=== PATIENT | female | born 2000 | race Caucasian/White ===

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

== ENCOUNTER 2021-12-19 15:02 | Emergency (ER) | payer OTHER, SELFPAY ==
--- NOTE | 2021-12-19 | ECG_ITS ---
Test Reason : chest pain Blood Pressure : / mmHG Vent. Rate : 101 BPM Atrial Rate : 101 BPM P-R Int : 130 ms QRS Dur : 072 ms QT Int : 340 ms P-R-T Axes : 055 064 047 degrees QTc Int : 440 ms Sinus tachycardia Otherwise normal ECG No previous ECGs available Referred By: Generic ED Physician Electronically Signed By:NAT LORENZO MD
--- NOTE | ~2021-12-19 | XR_ITS ---
EXAMINATION: XR CHEST CLINICAL INFORMATION: Cough, chest pain. COMPARISON: Chest radiograph on 08/11/2015 TECHNIQUE: 2 views of the chest were obtained. FINDINGS: No significant abnormality is noted involving the heart, lungs, mediastinum, bony thorax or soft tissues. XR/XR chest 2V IMPRESSION: Unremarkable examination.
[2021-12-19 15:13] VITALS: BP 103/65; PULSE 100; RESP 16; TEMP 36.6; O2SAT 99; BMI 22.1
[2021-12-19 15:48] LABS: COVID-19 Test Negative (Negative); IDNOW Serial# 16C4AD1C; Influenza A Negative (Negative); Influenza B2 Negative (Negative)
[2021-12-19 16:06] LABS: Appearance Urine CLEAR; Color Urine YELLOW; Glucose Urine UA NEG (NEG); Leukocyte Esterase Urine NEG (NEG); Nitrite Urine NEG (NEG); UACC Culture Trigger NO; Urine Blood TRACE (NEG); Urine Ketones NEG (NEG); Urine Protein NEG (NEG-TRACE)
[2021-12-19 16:25] LABS: Alanine Aminotransferase 13 U/L (0-31); Albumin Level 4.5 g/dL (3.5-5.0); Alkaline Phosphatase 80 U/L (39-117); Anion Gap 16 (12-20); Aspartate Amino Transferase 34 U/L (5-31); Bilirubin Total 0.3 mg/dL (0.0-1.0); Blood Urea Nitrogen 7 mg/dL (9-16); Calcium 9.1 mg/dL (8.4-10.2); Carbon Dioxide 17 mmol/L (22-29); Chloride 106 mmol/L (96-108); Estimated Glomerular Filt Rate > 60; Glucose Random 100 mg/dL (60-115); Potassium 4.5 mmol/L (3.3-5.1); Sodium 134 mmol/L (135-145); Total Protein 8.8 g/dL (6.5-8.0)
[2021-12-19 16:40] LABS: WBC Urine 0-2 /HPF (0-4)
[2021-12-19 16:41] LABS: Bacteria Urine TRACE /LPF; Squamous Epithelial Cell Urine 2+ /LPF
[2021-12-19 16:45] VITALS: BP 98/65; PULSE 108; RESP 18; TEMP 37.8; O2SAT 100
--- NOTE | 2021-12-19 16:55 | PC.NURSE ---
pt alert and oriented, skin appropriate for ethnicity/ and flushed in the checks/eyes glossy/congested/dry cough/chest tightness/ ls clear through out all colon, sinus tach on the monitor around 111.
[2021-12-19 16:58] LABS: MANUAL DIFF FLAG NO
[2021-12-19 16:59] LABS: Basophils Percent Auto 0.2 % (0-2); Eosinophils Absolute Auto 0.2 X10*3/uL (0.0-0.4); Eosinophils Percent Auto 1.8 % (0-4); Hematocrit 35.5 % (37.0-47.0); Imm Gran Abs Auto 0.03 X10*3/uL (0.00-0.03); Imm Gran Pct Auto 0.3 % (0.0-0.4); Lymphocytes Absolute Auto 0.8 X10*3/uL (1.2-4.9); Lymphocytes Percent Auto 8.6 % (20-40); Mean Corpuscular Hemoglobin 23.9 pg (27.0-33.0); Mean Platelet Volume 9.6 fL (9.4-12.3); Monocytes Percent Auto 10.7 % (2-11); Neutrophils Absolute Auto 7.3 x10*3/uL (2.0-8.3); Neutrophils Percent Auto 78.4 % (45-73); Platelet Count 374 X10*3/uL (160-400); Red Blood Count 4.61 X10*6/uL (4.20-5.50); Red Cell Distribution Width 16.5 % (11.0-16.0); White Blood Count 9.3 X10*3/uL (4.8-10.8)
--- NOTE | 2021-12-19 17:21 | ED_ITS ---
HPI - General Adult General Chief complaint: General Medical Stated complaint: Chest pain Time Seen by Provider: 12/19/21 17:21 History of Present Illness HPI narrative: Positive coughing congestion upper respiratory symptoms having chest pain that is mid chest. It has been ongoing since this morning. no history diabetes, hypertension, mi, family history of NM. No smoking. No recreational drugs. No leg swelling. No history of blood clots. Not on control. Patient from home. No travel long distances. Positive low-grade fever congestion upper respiratory symptoms. Patient received COVID vaccine x2. Also had COVID infection about year and half ago. No diaphoresis. Related Data Previous Rx's Medication Instructions Recorded azithromycin 250 mg tablet See Rx Instructions PO .COMPLEX 12/19/21 upper resp infection #6 tabs Allergies Allergy/AdvReac Type Severity Reaction Status Date / Time No Known Allergies Allergy Verified 11/23/20 19:37 Review of Systems Review of Systems: Positive coughing congestion upper respiratory symptoms positive generalized malaise Yes all other systems are reviewed and are negative ON LICENSE OF [facility] Past Medical History Attestation statement: The following information was validated with the patient. Medical History Go syndrome Social History Social History Alcohol intake: never Patient Tobacco Use Status: Never used Tobacco Smoked in Last 30 Days: No Use of substances other than those prescribed or required for medical reasons: No Advance Directives: No Advance Directives Information Provided: Yes Physical Exam ED Vital Signs: Vital Signs - 24 hr 12/19/21 15:13 12/19/21 16:45 Temperature 98 F 100.1 F Pulse Rate 100 108 H Respiratory Rate 16 18 Blood Pressure 103/65 98/65 Pulse Oximetry 99 100 Oxygen Delivery Method Room Air Room Air BMI result Body Mass Index 22.1 Appearance: Alert. Oriented X3. No acute distress. Eyes: Pupils equal, round and reactive to light. ENT: Pharynx normal. Neck: Normal inspection. Neck supple. No lymph nodes noted. No crepitus CVS: Normal heart rate and rhythm. Pulses normal. Normal S1 and S2 Respiratory: No respiratory distress. Breath sounds normal. No Wheezing. No rales Abdomen: Soft and nontender. No rigidity. No distention. good BS x4 Skin: Skin warm and dry. Normal skin color. Normal skin turgor. Extremities: No lower extremity edema. Neurovascular intact to all extremities. No Lacerations. No Rash Neuro: Oriented X 3. No motor deficit. No sensory deficit. Moving all extermities. No slurred speech Medical Decision Making MDM Narrative Medical decision making narrative: patient's EKG showed a sinus pattern heart rate is 100 DE QRS QT within normal limits is no acute ST segment elevation. History not consistent with ACS. No history to suggest pulmonary emboli. Patient positive URI symptoms. Chest x- ray negative for focal infiltrate. Positive congestion, coughing. Will go ahead and give a Z-Chuck. Have patient follow-up on an outpatient basis. COVID test flu were negative. In stable condition. Lab Data Result diagrams: 12/19/21 15:53 12/19/21 15:53 Labs: Lab Results 12/19/21 12/19/21 12/19/21 Range/Units 15:21 15:21 15:53 WBC 9.3 (4.8-10.8) X10*3/uL RBC 4.61 (4.20-5.50) X10*6/uL Hgb 11.0 L (12.0-16.0) g/dl Hct 35.5 L (37.0-47.0) % MCV 77.0 L (80.0-98.0) fL MCH 23.9 L (27.0-33.0) pg MCHC 31.0 (31.0-35.0) g/dl RDW 16.5 H (11.0-16.0) % Plt Count 374 (160-400) X10*3/uL MPV 9.6 (9.4-12.3) fL Immature Gran % (Auto) 0.3 (0.0-0.4) % Neut % (Auto) 78.4 H (45-73) % Lymph % (Auto) 8.6 L (20-40) % Ida % (Auto) 10.7 (2-11) % Eos % (Auto) 1.8 (0-4) % Baso % (Auto) 0.2 (0-2) % Lymph # (Auto) 0.8 L (1.2-4.9) X10*3/uL Ida # (Auto) 1.0 (0.1-1.2) X10*3/uL Eos # (Auto) 0.2 (0.0-0.4) X10*3/uL Baso # (Auto) 0.0 (0.0-0.2) X10*3/uL Abs Immat Gran (auto) 0.03 (0.00-0.03) X10*3/uL Absolute Neuts (auto) 7.3 (2.0-8.3) x10*3/uL Absolute Nucleated RBC 0.000 (0.0-0.012) X10*3/uL Nucleated RBC % (auto) 0.0 (0.0-0.2) /100WBC Sodium (135-145) mmol/L Potassium (3.3-5.1) mmol/L Chloride (96-108) mmol/L Carbon Dioxide (22-29) mmol/L Anion Gap (12-20) BUN (9-16) mg/dL Creatinine (0.5-1.4) mg/dL Estim Creat Clear Calc Estimated GFR Random Glucose (60-115) mg/dL Calcium (8.4-10.2) mg/dL Total Bilirubin (0.0-1.0) mg/dL AST (5-31) U/L ALT (0-31) U/L Alkaline Phosphatase (39-117) U/L Total Protein (6.5-8.0) g/dL Albumin (3.5-5.0) g/dL Urine Color Urine Appearance Urine pH (5.0-8.0) Ur Specific [place] (1.005-1.025) Urine Protein (NEG-TRACE) MG/DL Urine Glucose (UA) (NEG) MG/DL Urine Ketones (NEG) MG/DL Urine Blood (NEG) Urine Nitrite (NEG) Ur Leukocyte Esterase (NEG) Urine RBC (0) /HPF Urine WBC (0-4) /HPF Ur Squamous Epith Cells /LPF Urine Bacteria /LPF COVID-19 (GÉNESIS) Negative (Negative) COVID-19 Clin Com See Note Influenza Type A (FANY) Negative (Negative) Influenza Type B (FANY) Negative (Negative) Influenza A & B Note See Note 12/19/21 12/19/21 Range/Units 15:53 15:53 WBC (4.8-10.8) X10*3/uL RBC (4.20-5.50) X10*6/uL Hgb (12.0-16.0) g/dl Hct (37.0-47.0) % MCV (80.0-98.0) fL MCH (27.0-33.0) pg MCHC (31.0-35.0) g/dl RDW (11.0-16.0) % Plt Count (160-400) X10*3/uL MPV (9.4-12.3) fL Immature Gran % (Auto) (0.0-0.4) % Neut % (Auto) (45-73) % Lymph % (Auto) (20-40) % Ida % (Auto) (2-11) % Eos % (Auto) (0-4) % Baso % (Auto) (0-2) % Lymph # (Auto) (1.2-4.9) X10*3/uL Ida # (Auto) (0.1-1.2) X10*3/uL Eos # (Auto) (0.0-0.4) X10*3/uL Baso # (Auto) (0.0-0.2) X10*3/uL Abs Immat Gran (auto) (0.00-0.03) X10*3/uL Absolute Neuts (auto) (2.0-8.3) x10*3/uL Absolute Nucleated RBC (0.0-0.012) X10*3/uL Nucleated RBC % (auto) (0.0-0.2) /100WBC Sodium 134 L (135-145) mmol/L Potassium 4.5 (3.3-5.1) mmol/L Chloride 106 (96-108) mmol/L Carbon Dioxide 17 L (22-29) mmol/L Anion Gap 16 (12-20) BUN 7 L (9-16) mg/dL Creatinine 0.78 (0.5-1.4) mg/dL Estim Creat Clear Calc 72.0 Estimated GFR > 60 Random Glucose 100 (60-115) mg/dL Calcium 9.1 (8.4-10.2) mg/dL Total Bilirubin 0.3 (0.0-1.0) mg/dL AST 34 H (5-31) U/L ALT 13 (0-31) U/L Alkaline Phosphatase 80 (39-117) U/L Total Protein 8.8 H (6.5-8.0) g/dL Albumin 4.5 (3.5-5.0) g/dL Urine Color YELLOW Urine Appearance CLEAR Urine pH 7.0 (5.0-8.0) Ur Specific [place] 1.020 (1.005-1.025) Urine Protein NEG (NEG-TRACE) MG/DL Urine Glucose (UA) NEG (NEG) MG/DL Urine Ketones NEG (NEG) MG/DL Urine Blood TRACE (NEG) Urine Nitrite NEG (NEG) Ur Leukocyte Esterase NEG (NEG) Urine RBC 5-9 H (0) /HPF Urine WBC 0-2 (0-4) /HPF Ur Squamous Epith Cells 2+ /LPF Urine Bacteria TRACE /LPF COVID-19 (GÉNESIS) (Negative) COVID-19 Clin Com Influenza Type A (FANY) (Negative) Influenza Type B (FANY) (Negative) Influenza A & B Note Discharge Plan Discharge Clinical Impression: Upper respiratory infection Patient Disposition: Home, Self-Care Instructions: Upper Respiratory Infection (ED) Prescriptions: New azithromycin 250 mg tablet See Rx Instructions .ROUTE .COMPLEX Qty: 6 0RF Rx Instructions: take 500 mg today (day 1), then 250 mg for 4 days (days 2-5) Referrals: Physician,Unknown J [Primary Care Provider] -
[2021-12-19 17:28] VITALS: BP 111/70
[2021-12-19 17:31] LABS: Troponin-I High Sensitivity < 3.5 ng/L (<3.5-17.0)
[2021-12-19] MEDS: Acetaminophen 325 MG TABLET 975 MG PO (17:52)
[2021-12-19 17:55] VITALS: TEMP 38.8
== END 2021-12-19 18:58 | disposition home or self-care (01) ==
PROVIDERS: Emergency Provider Emergency Medicine Emergency Medical Services
DX: J06.9 Acute upper respiratory infection, unspecified (principal); Z20.822 Contact with and (suspected) exposure to COVID-19
CPT/HCPCS: 36415; 71046; 80053; 81001; 84484; 85025; 87502; 87635; 93005; 99283; 99284

== ENCOUNTER → 2022-03-26 10:09 | Outpatient (BNVA) | payer OTHER, SELFPAY | PROVIDERS: Visit Provider Internal Medicine | DX: D50.9 Iron deficiency anemia, unspecified (principal); R10.2 Pelvic and perineal pain; K58.1 Irritable bowel syndrome with constipation | CPT/HCPCS: 99202 ==

== ENCOUNTER 2022-06-12 18:41 | Emergency (ER) | payer OTHER, SELFPAY ==
--- NOTE | ~2022-06-12 | CT_ITS ---
EXAMINATION: CT HEAD WITHOUT CONTRAST CLINICAL INFORMATION: Head injury. Fall. COMPARISON: None TECHNIQUE: Contiguous axial imaging was performed from the skull base to vertex without intravenous administration of contrast. This CT examination was performed using dose optimization techniques as appropriate, variously including the following: *Automated exposure control *Adjustment of mA and/or kV according to patient size (this includes techniques or standardized protocols for targeted exams where dose is matched to indication/reason for exam; i.e. extremities or head) *Use of iterative reconstruction technique DLP: 619 mGy-cm FINDINGS: There is no evidence of an extra-axial collection. There is no evidence of intra-axial or extra-axial hemorrhage. The ventricles and extra-axial CSF spaces are normal.. Goldman-white matter differentiation is normal. No mass, mass effect or infarct is seen. Review of bone windows is normal. No skull fracture. Visualized paranasal sinuses, mastoid air cells and middle ears are clear. CT/CT head/brain wo IV con IMPRESSION: Unremarkable exam.
[2022-06-12 19:07] VITALS: BP 113/59; PULSE 70; RESP 20; TEMP 36.6; O2SAT 100; BMI 21.9
--- NOTE | 2022-06-12 19:08 | ED.HEATRA ---
HPI - Head Injury General Chief complaint: Head Injury Stated complaint: Head Pain Time Seen by Provider: 06/12/22 20:33 Source: patient Mode of arrival: ambulatory Limitations: no limitations History of Present Illness HPI Narrative: 21yoF presenting to the ED with complaints of intermittent headaches, difficulty focusing after she fell and hit her head twice. She reports initially she fell approximately 1-2 months ago and then on Thursday when it was snowing she slipped and fell on ice and hit her head. Did not lose consciousness. Although due to her continued to have the symptoms she came here for further evaluation treatment. She denies being on any blood thinners. She denies any other injuries complaints or concerns at this time. MD Complaint: head injury and fall Onset (ago): day(s) (4) Mechanism of Injury: fall Place: outdoors (Slipped on ice) Location of injury: occipital Severity: mild Quality: aching Radiation: none Other Injuries: none Associated symptoms: nausea and other (Difficulty focusing and headaches) Related Data Previous Rx's Medication Instructions Recorded acetaminophen 500 mg tablet 1,000 mg PO QID PRN fever or pain 06/12/22 (Tylenol Extra Strength) #14 tabs ondansetron HCl 4 mg tablet 4 mg PO Q8H #14 tabs 06/12/22 Allergies Allergy/AdvReac Type Severity Reaction Status Date / Time No Known Allergies Allergy Verified 03/26/22 10:15 Review of Systems Review of Systems: Constitutional : No changes in activity, No lethargy, + recent prior head injury and fall, No agitation, No increased fussiness ENT/Mouth : No Ear Pain, No Nasal discharge/drainage Eyes: No Eye Pain, No Swelling, No Redness, No Foreign Body, No Vision Changes Cardiovascular : No Chest Pain, No SOB Respiratory : No Cough Gastrointestinal : No Nausea, No Vomiting, No abdominal Pain Genitourinary : No Dysuria, No Urinary Frequency, No Urinary Incontinence, No Urgency, No Flank Pain Musculoskeletal : No joint pain, No neck stiffness, No back pain/injury Skin : No lacerations Neuro : No unsteady gait, No Paresthesias, No Loss of Consciousness, No altered mental status, No dizziness, + Headache Denies past medical history of HIV, recent trauma, coagulopathy, recent spinal/ epidural procedure, new medication, URI symptoms, close contacts with similar symptoms, tick bite, or known CO2 exposure. Yes all other systems are reviewed and are negative [facility]LY [facility] Past Medical History Attestation statement: The following information was validated with the patient. Source: old records reviewed and nursing notes reviewed Medical History Go syndrome Surgical History Hx of adenoidectomy Hx of external ear surgery Social History Social History Alcohol intake: never Patient Tobacco Use Status: Never used Tobacco Physical Exam Vital Signs: Vital Signs: Last Vital Signs Temp 97.8 F 06/12/22 19:07 Pulse 70 06/12/22 19:07 Resp 20 06/12/22 19:07 BP 113/59 L 06/12/22 19:07 Pulse Ox 100 06/12/22 19:07 O2 Del Method 06/12/22 19:07 BMI result Body Mass Index 21.9 vital signs have been reviewed as normal and appeared to be correct. Blood pressure normal. Heart rate normal. Respiration rate normal. Temperature normal. Oxygen saturation normal. Appearance: Alert. Oriented X3. No acute distress. Head: Normal external exam. Normocephalic. Atraumatic. No Jean signs noted. No raccoon eyes noted Eyes: PERRLA. EOMI. Conjunctiva and sclera normal. Eyelids normal. ENT: EAC normal. TM's Normal. No septal hematoma noted. No hemotympanum noted. Pharynx normal. Uvula midline. Moist mucous membranes. No lesions/ulcerations or masses noted on the tongue. Normal voice. No trismus noted. No drooling noted. No muffled voice noted. Neck: Normal inspection. Neck supple. FROM. No adenopathy. Thyroid Normal. No tracheal deviation noted. No crepitus is noted. No meningeal signs. No neck mass noted. No signs of trauma noted. CVS: Normal heart rate and rhythm. Heart sound normal. Pulses normal throughout. No murmurs/rales/gallops. Respiratory: No respiratory distress. Painless inspiration. Breath sounds normal. No wheezes/rales/rhonchi noted. Chest nontender. No crepitus is noted. No accessory muscle usage noted or decreased air movement noted. No signs of trauma. Abdomen: Soft and nontender. Nondistended. No guarding. No rigidity. Bowel sounds normal in all 4 quadrants. No distention noted. No organomegaly noted. No visible injury noted. No rebound tenderness. Negative Rovsing sign. Negative obturator's sign. Negative psoas sign. Negative Elaine sign. Back: No CVA tenderness. Full range of motion noted. Nontender. No signs of trauma. Patient neuro intact bilaterally and distally on all 4 extremities. Patient's reflexes intact bilaterally and distally on all 4 extremities. No rashes/lesion/induration/fluctuance or signs of infection noted. Skin: Skin warm and dry. Normal skin color. Normal skin turgor. No rashes/lesions/lacerations noted. Extremities: No lower extremity edema. No calf tenderness is noted. Extremities exhibit normal range of motion and nontender. Neuro: Oriented X 3. No motor deficit. No sensory deficit. Reflexes normal. Normal steady gait. No focal neuro deficits noted. CN's II-XII intact bilaterally? Vascular: + radial pulses/+ 2 distal pedal pulses/+2 dorsalis pedis b/l. Normal cap refill. No cyanosis noted to upper extremity nails and lower extremity toes nails. Course Course Course Narrative: ADRY- 19:10PM - 21yoF presenting to the ED with complaints of intermittent headaches, difficulty focusing after she fell and hit her head twice. She reports initially she fell approximately 1-2 months ago and then on Thursday when it was snowing she slipped and fell on ice and hit her head. Did not lose consciousness. Although due to her continued to have the symptoms she came here for further evaluation treatment. She denies being on any blood thinners. She denies any other injuries complaints or concerns at this time. Plan: CT scan of brain without contrast. Patient will be sent back to the waiting room to be evaluated and emergency minor care. Reevaluation(s) Reevaluation #1: CT scan of brain without contrast within normal limits. Patient with normal neuro exam patient most likely concussion. Will DC home with symptomatic treatment instructions return if any new or worsening symptoms follow up with primary care provider. Patient understands agrees with this plan. Time: 20:37 Medical Decision Making Independent Interpretation Interpretation: CT scan of brain without contrast FINDINGS: There is no evidence of an extra-axial collection. There is no evidence of intra-axial or extra-axial hemorrhage. The ventricles and extra-axial CSF spaces are normal.. Goldman-white matter differentiation is normal. No mass, mass effect or infarct is seen. Review of bone windows is normal. No skull fracture. Visualized paranasal sinuses, mastoid air cells and middle ears are clear. ? CT/CT head/brain wo IV con IMPRESSION: Unremarkable exam. Discharge Plan Discharge Clinical Impression: Closed head injury, Concussion without loss of consciousness Patient Disposition: Home, Self-Care Instructions: Concussion (ED), Head Injury (ED) Prescriptions: New acetaminophen [Tylenol Extra Strength] 500 mg tablet 1,000 mg PO QID PRN (Reason: fever or pain) Qty: 14 0RF ondansetron HCl 4 mg tablet 4 mg PO Q8H Qty: 14 0RF Referrals: Physician,Unknown J [Primary Care Provider] - (Follow-up with her PCP this week) Stand Alone Forms: Work/School Release Print Language: Romanian
== END 2022-06-12 20:44 | disposition home or self-care (01) ==
LOC: HO.ED 20:43
PROVIDERS: Emergency Provider Internal Medicine
DX: R51.9 Headache, unspecified (principal); R06.02 Shortness of breath; Z79.899 Other long term (current) drug therapy
CPT/HCPCS: 70450; 99282; 99284

== ENCOUNTER 2022-07-08 14:42 | Outpatient (REF) | payer OTHER, SELFPAY | END 2022-07-08 14:43 | disposition home or self-care (01) | LOC: HO.LNP 14:42 | PROVIDERS: Visit Provider Obstetrics & Gynecology | DX: O26.891 Other specified pregnancy related conditions, first trimester (principal); R10.9 Unspecified abdominal pain | CPT/HCPCS: 81025; 99212 ==

== ENCOUNTER 2022-07-08 15:46 | Outpatient (REF) | payer OTHER, SELFPAY ==
--- NOTE | ~2022-07-08 | US_ITS ---
EXAMINATION: US OBSTETRICAL ULTRASOUND CLINICAL INFORMATION: Pelvic pain affecting COMPARISON: None. LMP: 06/08/2022. Gestational age by maternal dates is 4 weeks 2 days. Estimated date of delivery by maternal dates is 03/15/2023. TECHNIQUE: Transabdominal and endovaginal imaging was performed. FINDINGS: The uterus appears normal. Endometrial thickness is 1.2 cm. No gestational sac is seen. No fluid is seen in the endometrial canal. The right ovary measures 3.2 x 2.7 x 2.7 cm which includes a corpus luteum cyst measuring 1.9 x 1.7 x 1.7 cm. The left ovary measures 2.8 x 1.6 x 2.1 cm. There is no significant adnexal mass. No pelvic ascites. US/US OB pelvic and transvaginal IMPRESSION: No intrauterine is identified at this time. Correlation with beta hCG levels is recommended, as nonvisualization of a gestational sac could be due to an early stage of . Alternatively, lack of an intrauterine gestational sac may also be seen with missed or ectopic , although no adnexal mass is seen to strongly suggest ectopic . Short-term sonographic follow-up and serial beta hCG levels are recommended to assess for development of an intrauterine gestational sac.
[2022-07-08 18:15] LABS: CT PCR NOT DETECTED (Not Detect.); NG PCR NOT DETECTED (Not Detect.)
[2022-07-09 10:02] LABS: BV Int Neg Control Negative (Negative); BV Int Pos Control Positive (Positive)
== END 2022-07-08 15:47 | disposition home or self-care (01) ==
LOC: HO.US 15:46
PROVIDERS: Visit Provider Obstetrics & Gynecology
DX: O26.891 Other specified pregnancy related conditions, first trimester (principal); R10.2 Pelvic and perineal pain; Z3A.01 Less than 8 weeks gestation of pregnancy
CPT/HCPCS: 0353U; 76801; 76817; 87480; 87510; 87660

== ENCOUNTER 2022-07-09 12:49 | Outpatient (REF) | payer OTHER, SELFPAY ==
[2022-07-09 14:24] LABS: Hematocrit 31.4 % (37.0-47.0); Hemoglobin 9.7 g/dl (12.0-16.0); Mean Corpuscular HGB Conc 30.9 g/dl (31.0-35.0); Mean Corpuscular Hemoglobin 23.8 pg (27.0-33.0); Mean Corpuscular Volume 77.1 fL (80.0-98.0); Mean Platelet Volume 9.4 fL (9.4-12.3); Platelet Count 472 X10*3/uL (160-400); Red Blood Count 4.07 X10*6/uL (4.20-5.50); Red Cell Distribution Width 15.8 % (11.0-16.0); White Blood Count 6.6 X10*3/uL (4.8-10.8)
[2022-07-09 15:03] LABS: Alanine Aminotransferase 12 U/L (0-31); Aspartate Amino Transferase 18 U/L (5-31); Estimated Glomerular Filt Rate > 60
[2022-07-09 15:06] LABS: HCG Quantitative 580 mIU/mL
== END 2022-07-09 12:50 | disposition home or self-care (01) ==
LOC: HO.LAB 12:49
PROVIDERS: Visit Provider Obstetrics & Gynecology
DX: O26.891 Other specified pregnancy related conditions, first trimester (principal); R10.2 Pelvic and perineal pain
CPT/HCPCS: 36415; 82565; 84450; 84460; 84702; 85027; 99212

== ENCOUNTER 2022-07-11 06:21 | Outpatient (REF) | payer OTHER, SELFPAY ==
[2022-07-11 08:50] LABS: HCG Quantitative 1127 mIU/mL
== END 2022-07-11 06:22 | disposition home or self-care (01) ==
LOC: HO.LAB 06:21
PROVIDERS: Visit Provider Obstetrics & Gynecology
DX: Z34.90 Encounter for supervision of normal pregnancy, unspecified, unspecified trimester (principal)
CPT/HCPCS: 36415; 84702

== ENCOUNTER 2022-07-13 08:52 | Outpatient (REF) | payer OTHER, SELFPAY ==
[2022-07-13 11:18] LABS: HCG Quantitative 2660 mIU/mL
== END 2022-07-13 08:53 | disposition home or self-care (01) ==
LOC: HO.LAB 08:52
PROVIDERS: Visit Provider Obstetrics & Gynecology
DX: Z34.90 Encounter for supervision of normal pregnancy, unspecified, unspecified trimester (principal)
CPT/HCPCS: 36415; 84702

== ENCOUNTER 2022-07-15 07:49 | Outpatient (REF) | payer OTHER, SELFPAY ==
--- NOTE | ~2022-07-15 | US_ITS ---
EXAMINATION: US FIRST TRIMESTER CLINICAL INFORMATION: LMP: 06/08/2022 Beta-hC on 07/15/2022. COMPARISON: Prior ultrasound on 07/08/2022. TECHNIQUE: Transabdominal imaging was performed. FINDINGS: UTERUS AND INTRAUTERINE GESTATIONAL SAC: There is a single intrauterine gestational sac. 0.6 cm suggesting of 5 weeks and 1 day. CROWN-RUMP LENGTH (CRL): pole not visualized.. YOLK SAC: Not found HEART MOTION: Not visible yet. SUBCHORIONIC HEMORRHAGE: None OVARIES: No adnexal mass seen. Right: Corpus luteal cyst 2.4 x 1.5 x 2 cm. Left: Normal FREE FLUID: None OTHER FINDINGS: None US/US OB pelvic and transvaginal IMPRESSION: 1. Single intrauterine gestational sac 0.6 cm suggesting of 5 weeks 1 day. pole or heart rate is not detected could be early in the . Attention to follow-up serial imaging recommended. 2. Cystic structure in the right ovary likely corpus luteal cyst 2.4 cm.
[2022-07-15 09:22] LABS: HCG Quantitative 5520 mIU/mL
== END 2022-07-15 07:50 | disposition home or self-care (01) ==
LOC: HO.US 07:49
PROVIDERS: Visit Provider Obstetrics & Gynecology
DX: Z34.91 Encounter for supervision of normal pregnancy, unspecified, first trimester (principal); Z3A.01 Less than 8 weeks gestation of pregnancy
CPT/HCPCS: 36415; 76801; 76817; 84702; 99212

== ENCOUNTER 2022-07-22 08:56 | Emergency (ER) | payer OTHER, SELFPAY ==
[2022-07-22 09:01] VITALS: BP 106/44; PULSE 96; RESP 18; TEMP 36.5; O2SAT 99; BMI 20.1
[2022-07-22 09:17] VITALS: BP 106/44; PULSE 96; RESP 18; TEMP 36.5; O2SAT 99
--- NOTE | 2022-07-22 10:21 | ED.URI ---
HPI - URI/Sore Throat General Chief Complaint: Ear Problems Stated Complaint: R ear pain/Chest soreness w movement Time Seen by Provider: 07/22/22 09:19 Source: patient and family ( ) Mode of arrival: ambulatory Limitations: no limitations History of Present Illness HPI Narrative: 22-year-old female who is currently 6 weeks presenting to the ER with complaints of URI complaints that started yesterday which include chills, fatigue, malaise, nasal congestion / rhinorrhea, sinus pressure pain, sore throat, sneezing and right ear pain along with a dry cough. She is also concerned for an enlarged lymph own on the right side of her neck that has been present for approximately 1-2 months. Reports that she is able to follow back up with her doctor regarding this. She denies any fevers, dizziness, headaches, neck pain/stiffness, chest pain or shortness of breath, dyspnea on exertion, orthopnea, palpitations, paresthesias, sputum production, nausea /vomiting / diarrhea constipation, black or bloody stools, dysuria, hematuria, abnormal vaginal discharge, black or bloody stools, vaginal bleeding, flank pain, back pain, recent travel or sick contacts, rashes, others with similar symptoms or any other symptoms complaints or concerns at this time. MD elicited complaint: cough, sore throat, rhinorrhea, nasal congestion and sinus pain Pertinent past history: other ( Currently 6 weeks ) Onset (ago): day(s) (2) Consistency: constant Severity: mild Description of mucous: clear, watery and yellow Able to tolerate fluids by mouth: Yes Exacerbating factors: swallowing Relieving factors: nothing Associated symptoms: chills, myalgias, rhinorrhea, nasal congestion, sore throat, cough and ear pain Treatments prior to arrival: none Related Data Previous Rx's Medication Instructions Recorded acetaminophen 500 mg tablet 500 mg PO Q6H PRN pain #14 tabs 07/22/22 (Tylenol Extra Strength) Allergies Allergy/AdvReac Type Severity Reaction Status Date / Time No Known Allergies Allergy Verified 07/15/22 10:25 Review of Systems Review of Systems: Constitutional : + chills/fatigue/malaise, No Weight loss, No Fever, No Night Sweats ENT/Mouth : + sore throat/nasal congestion/ rhinorrhea/sinus pressure pain, + right ear pain, No Hearing loss, No Sinus Pain, No Hoarseness, No Swallowing Difficulty Eyes: No Eye Pain, No Swelling, No Redness, No Foreign Body, No Discharge, No Vision Changes Cardiovascular : No Chest Pain, No SOB, No Dyspnea on Exertion, No Orthopnea, No Edema, No Palpitations Respiratory : + Cough, No Sputum, No Wheezing, No Smoke Exposure, No Dyspnea Gastrointestinal : No Nausea, No Vomiting, No Diarrhea, No Constipation, No abdominal Pain, No Hematochezia, No Melena Genitourinary : no irregular bleeding, No Dysuria, No Urinary Frequency, No Hematuria, No Urinary Incontinence, No Urgency, No Flank Pain, No Urinary Flow Changes, No Hesitancy Musculoskeletal : No joint pain, No Myalgias, No Joint Swelling Skin : No Skin Lesions, No rash Neuro : No Weakness, No Numbness, No Paresthesias, No Loss of Consciousness, No Dizziness, No Headache Psych : No Anxiety/Panic, No Depression, No SI/HI/AH/VH, No Social Issues, Heme/Lymph: No Bruising, No Bleeding,No Lymphadenopathy Endocrine : No Polyuria, No Polydipsia, No Temperature Intolerance Yes all other systems are reviewed and are negative [facility] Past Medical History Attestation statement: The following information was validated with the patient. Source: old records reviewed, obtained from family and nursing notes reviewed Medical History Go syndrome Surgical History Hx of adenoidectomy Hx of external ear surgery Social History Social History Alcohol intake: never Patient Tobacco Use Status: Never used Tobacco Smoked in Last 30 Days: No Use of substances other than those prescribed or required for medical reasons: No Advance Directives: No Advance Directives Information Provided: No Patient : Yes Physical Exam Vital Signs: Vital Signs: Last Vital Signs Temp 97.7 F 07/22/22 09:17 Pulse 96 07/22/22 09:17 Resp 18 07/22/22 09:17 BP 106/44 L 07/22/22 09:17 Pulse Ox 99 07/22/22 09:17 O2 Del Method 07/22/22 09:17 BMI result Body Mass Index 20.1 Vital signs reviewed. Blood pressure normal. Pulse normal. Respiration normal. Oxygen normal. Temperature normal. Appearance: Alert. Oriented X3. No acute distress. Head: Normal external exam. Normocephalic. Atraumatic. Eyes: PERRLA. EOMI. Conjunctiva and sclera normal. Eyelids normal. ENT: EAC normal. TM's Normal. Pharynx normal. Uvula midline. Moist mucous membranes. No lesions/ulcerations or masses noted on the tongue. Normal voice. No trismus noted. No drooling noted. No muffled voice noted. Neck: Normal inspection. Neck supple. FROM. + right posterior cervical chain pt noted to have one enlarged Lymph node nontender. No additional adenopathy. Thyroid Normal. No meningeal signs. CVS: Normal heart rate and rhythm. Heart sound normal. Pulses normal throughout. No murmurs/rales/gallops. Respiratory: No respiratory distress. Painless inspiration. Breath sounds normal. No wheezes/rales/rhonchi noted. Chest nontender. No accessory muscle usage noted or decreased air movement noted. Abdomen: Soft and nontender. no organomegaly. No rebound tenderness is noted. Back: Full range of motion noted. Nontender. No CVA tenderness is noted. Skin: Skin warm and dry. Normal skin color. Normal skin turgor. No rashes/lesions/lacerations noted. Extremities: Extremities exhibit normal range of motion and nontender. Neuro: Oriented X 3. No motor deficit. No sensory deficit. Reflexes normal. Normal steady gait. No focal neuro deficits noted. CN's II-XII intact bilaterally? Vascular: + radial pulses. Normal cap refill. No cyanosis noted to upper extremity nails Course Course Course Narrative: Ass: Viral syndrome.? Pt looks well, not dehydrated.? Breathing easily.? afebrile. Vital signs are stable within normal limits. Normal oxygen level. Lungs CTA. CV RRR. Neck is soft nontender supple with full range of motion no meningeal signs are noted. Posterior pharynx no erythema or exudate noted. Uvula midline. No trismus /drooling/ stridor. Patient tolerating secretions well. Moist mucous membranes are noted. Will obtain COVID/RSV/ flu and rapid strep otherwise no additional Labs/ iv fluids not indicated. Imaging not indicated. Not c/w pneumonia, otitis media, otitis externa, mastoiditis, peritonsillar abscess, pharyngeal abscess, dental abscess, gingival abscess. Not consistent with UTI / ptx/ pericarditis / mediastinitis / meningitis.? if swabs are negative patient will be discharged with viral syndrome and symptomatic treatment instructions return if any new or worsening symptoms follow up with her primary care provider for further evaluation treatment. Patient understands agrees with this plan. Medical Decision Making Lab Data MDM Lab Attestation statement: I reviewed the patient's lab results. Labs: Lab Results 07/22/22 07/22/22 Range/Units 10:01 10:01 Influenza Type A (PCR) NEGATIVE (Negative) Influenza Type B (PCR) NEGATIVE (Negative) RSV RNA Qual (PCR) NEGATIVE (Negative) SARS-CoV-2 RNA (RT-PCR) NEGATIVE (Negative) S. pyogenes GrpA FANY Negative (Negative) Independent Historian Clinical information obtained from an independent historian. History obtained from or confirmed by: Spouse Discharge Plan Discharge Clinical Impression: Acute viral syndrome, Enlarged lymph node in neck Patient Disposition: Home, Self-Care Instructions: Lymphadenopathy (ED), Viral Syndrome (ED) Prescriptions: New acetaminophen [Tylenol Extra Strength] 500 mg tablet 500 mg PO Q6H PRN (Reason: pain) Qty: 14 0RF Referrals: Physician,None [Primary Care Provider] - ( your PCP as needed) Stand Alone Forms: Work/School Release
[2022-07-22 10:28] LABS: IDNOW Serial# 6674DD1D; Strep A Nucleic Acid Negative (Negative)
[2022-07-22 10:58] LABS: Influenza A PCR NEGATIVE (Negative); Influenza B PCR NEGATIVE (Negative); Resp Syncy Virus RNA Qual PCR NEGATIVE (Negative); SARS COV2 PCR INHOUSE NEGATIVE (Negative)
== END 2022-07-22 11:20 | disposition home or self-care (01) ==
PROVIDERS: Physician Assistant Medical; Emergency Provider Emergency Medicine
DX: O26.91 Pregnancy related conditions, unspecified, first trimester (principal); Z3A.01 Less than 8 weeks gestation of pregnancy; B34.9 Viral infection, unspecified; R05.9 Cough, unspecified; M79.10 Myalgia, unspecified site; Z20.822 Contact with and (suspected) exposure to COVID-19; Z20.828 Contact with and (suspected) exposure to other viral communicable diseases
CPT/HCPCS: 0241U; 87651; 99283; 99284

== ENCOUNTER 2022-07-30 15:20 | Outpatient (REF) | payer OTHER, SELFPAY ==
--- NOTE | ~2022-07-30 | US_ITS ---
EXAMINATION: US OBSTETRICAL ULTRASOUND CLINICAL INFORMATION: Check viability. COMPARISON: Ultrasound OB pelvis and transvaginal. LMP: 06/08/2022. Gestational age by maternal dates is 7 weeks 3 days. Estimated date of delivery by maternal dates is 03/15/2023. TECHNIQUE: Transabdominal imaging of pelvis was performed. FINDINGS: There is a single intrauterine gestational sac with visible yolk sac, embryo/fetus, and cardiac activity. There is no significant subchorionic hemorrhage or hematoma. HR: 158 beats per minute. CRL (crown rump length): 0.98 cm (7 weeks 1 day +/- 4 days). NAVEEN (estimated date of delivery): 03/17/2023 +/- 4 days. MATERNAL ADNEXA: The right maternal ovary measures 3.73 x 2.12 x 2.96 cm. No focal lesion is seen. The left maternal ovary measures 2.16 x 1.78 x 1.55 cm. No focal lesion seen. There is no significant maternal adnexal mass. No maternal pelvic ascites. US/US OB <= 14 weeks fetus IMPRESSION: 1. Single intrauterine gestation with ultrasound gestational age of 7 weeks and 1 day +/- 4 days. 2. Estimated date of delivery is 03/17/2023 +/- 4 days. 3. No maternal adnexal mass or pelvic ascites.
== END 2022-07-30 15:21 | disposition home or self-care (01) ==
LOC: HO.HMGCX 15:20
PROVIDERS: Visit Provider Obstetrics & Gynecology
DX: Z34.91 Encounter for supervision of normal pregnancy, unspecified, first trimester (principal); Z3A.01 Less than 8 weeks gestation of pregnancy
CPT/HCPCS: 76801

== ENCOUNTER 2022-08-05 10:07 | Outpatient (REF) | payer OTHER, SELFPAY | END 2022-08-05 10:08 | disposition home or self-care (01) | LOC: HO.LAB 10:07 | PROVIDERS: Visit Provider Obstetrics & Gynecology | DX: O26.851 Spotting complicating pregnancy, first trimester (principal); Z3A.01 Less than 8 weeks gestation of pregnancy | CPT/HCPCS: 86850; 86900; 99212 ==

== ENCOUNTER 2022-08-11 15:07 | Outpatient (REF) | payer OTHER, SELFPAY | END 2022-08-11 15:08 | disposition home or self-care (01) | LOC: HO.LAB 15:07 | PROVIDERS: Visit Provider Advanced Practice Midwife | DX: Z34.91 Encounter for supervision of normal pregnancy, unspecified, first trimester (principal); R35.0 Frequency of micturition; R30.0 Dysuria | CPT/HCPCS: 87086; 99212 ==

== ENCOUNTER 2023-08-31 17:38 | Emergency (ER) | payer OTHER, SELFPAY ==
[2023-08-31 18:21] VITALS: BP 99/72; PULSE 85; RESP 16; TEMP 36.1; O2SAT 100; BMI 23.4
--- NOTE | 2023-08-31 18:21 | ED_ITS ---
HPI - Headache General Chief Complaint: Headache Stated Complaint: headache Time Seen by Provider: 08/31/23 20:27 Source: patient Mode of arrival: ambulatory Limitations: no limitations History of Present Illness HPI Narrative: Patient is a 23-year-old female who presents to the emergency department for evaluation of a headache. Reports it is primarily right-sided behind the eye and wraps around the side of the head. She does get some symptom relief with Tylenol and ibuprofen but only for a couple of hours before it returns. 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 Denies any red flag symptoms including fevers, chills, neck stiffness, malaise, aphasia, weakness, poor coordination, descriptors such as ?the worst headache ever ?or ?thunderclap?, or painful temporal region. Denies dizziness, lightheadedness, vision changes, URI symptoms, chest pain, shortness of breath, numbness or tingling of the extremities. Related Data Home Medications Medication Instructions Recorded Confirmed prenat.vits,peter,thn-qhvd-qmwgo 1 tab PO DAILY 08/11/22 Previous Rx's Medication Instructions Recorded hipwshtubh-gpqbjuajjtham-gchhxmfm 1 cap PO Q8H PRN pain #14 caps 08/31/23 50 mg-300 mg-40 mg capsule (Fioricet) Allergies Allergy/AdvReac Type Severity Reaction Status Date / Time No Known Allergies Allergy Verified 08/31/23 18:21 Review of Systems Review of Systems: Yes all other systems are reviewed and are negative PMFSH Past Medical History Attestation statement: The following information was validated with the patient. Source: old records reviewed Medical History Go syndrome Surgical History Hx of external ear surgery Hx of adenoidectomy Social History Social History Alcohol intake: never Patient Tobacco Use Status: Never used Tobacco Advance Directives: No Advance Directives Information Provided: No Physical Exam Vital Signs: Vital Signs: Last Vital Signs Temp 98.0 F 08/31/23 20:20 Pulse 81 03/04/24 20:20 Resp 17 08/31/23 20:20 BP 112/72 08/31/23 20:20 Pulse Ox 100 08/31/23 20:20 O2 Del Method Room Air 08/31/23 20:20 BMI result Body Mass Index 23.4 Appearance: Alert.?Oriented to person, place and time. No acute distress.?Normal affect. Head: Normocephalic, atraumatic Eyes: Pupils equal, round and reactive to light. EOMI. No nystagmus. No tenderness to palpation over the temporal region. ENT: External auditory canal normal tympanic membrane pearly askew and intact bilaterally. Oropharynx normal. Neck: Normal inspection.? Neck supple. CVS: Heart sounds normal. Normal heart rate and rhythm.? Pulses normal.?? Respiratory: No respiratory distress.? Lung sounds clear to auscultation bilaterally?? Abdomen: Soft and non-tender. Normoactive bowel sounds. ?? Skin: Skin warm and dry.? Normal skin color.? ?? Extremities: No lower extremity edema.? Neuro: Moves all extremities spontaneously. Sensation intact bilaterally. CN II- XII intact. No focal neuro deficits. Ambulatory with steady gait. Course Course Course Narrative: RME- 18:22PM 23yoF presenting to the ER with complaints of a headache to the right side of her head/right orbit for the past 5 days. She reports she has had headaches in the past although this once has lasted a little longer. She reports she is taking Tylenol although it takes the pain away mildly and then it comes back. She reports it as a throbbing sensation. 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 She denies any fevers, nasal congestion/rhinorrhea, cough, sore throat, trouble swallowing or breathing, rashes neck stiffness, paresthesias, weakness, recent falls or trauma, tick bites or any other symptoms complaints or concerns at this time. Plan: Patient can be sent to [facility] [place] COVID/RSV/flu swab, UA and urine ordered at this time. Medications Administered Discontinued Medications Generic Name Dose Route Start Last Admin Trade Name Freq PRN Reason Stop Dose Admin Acetaminophen/Butalbital/Caffeine 1 tab 08/31/23 20:45 08/31/23 21:29 Butalb/Acetamin/Caff 50/325/40 Tablet PO 08/31/23 20:46 1 tab ONCE ONE Administration Medical Decision Making Medical Decision Making [facility] Narrative: Patient is a 23-year-old female who presents emergency department for evaluation of an intermittent right-sided headache for 5 days as per HPI. Has no focal neurological deficits upon examination. No associated viral type symptoms. Does not wear corrective lenses nor has she had any recent eye examination, but headache is notably worse after straining/prolonged use of computer/phone screen. Differential diagnosis with presentation includes SDH, SAH, ICH, MAGNETIC HEALER mass, meningitis, encephalitis, CVA, GCA, migraine, headache. History without concerning exposures, not exacerbated or worsened by exertion, no red flag symptoms, vision changes, under the age of 50, no new no compromising conditions, no focal neurological abnormalities. No indication for emergent head CT. Viral testing is negative. HCG negative. Trialed treatment with Fioricet with improvement in headache. Will send short prescription to pharmacy advised outpatient follow-up with her primary care provider. All questions answered. Stable for discharge. Differential Diagnosis Differential Diagnoses: The differential diagnosis associated with the presentation includes (SDH, SAH, ICH, MAGNETIC HEALER mass, meningitis, encephalitis, CVA, GCA, migraine, headache) Admission/Observation Consideration of admission/observation: Escalation of care including admission/observation considered (See narrative above) Lab Data [facility] Lab Attestation statement: I reviewed the patient's lab results. (Viral testing negative.) Labs: Lab Results 08/31/23 08/31/23 Range/Units 18:28 20:46 Urine Color Yellow Urine Appearance Clear Urine pH 6.5 (5.0-9.0) Ur Specific [place] 1.015 (1.005-1.025) Urine Protein Negative (Neg-Trace) mg/dL Urine Glucose (UA) Negative (Negative) mg/dL Urine Ketones Negative (Negative) mg/dL Urine Blood Negative (Negative) Urine Nitrite Negative (Negative) Ur Leukocyte Esterase Negative (Negative) Urine Test NEGATIVE (NEGATIVE) Influenza Type A (PCR) NEGATIVE (Negative) Influenza Type B (PCR) NEGATIVE (Negative) RSV RNA Qual (PCR) NEGATIVE (Negative) SARS-CoV-2 RNA (RT-PCR) NEGATIVE (Negative) Independent Historian Clinical information obtained from an independent historian. History obtained from or confirmed by: Spouse (Present who confirms history) External Record Review External record reviewed: Outpatient record and Other ([employer]) Prescription Management I considered prescription management with: Pain Medication Discharge Plan Discharge Clinical Impression: Headache Patient Disposition: Home, Self-Care Instructions: Acute Headache (ED) Prescriptions: New hntnhiztyv-razqiczswwjbr-gbui [Fioricet] 50-300-40 mg capsule 1 cap PO Q8H PRN (Reason: pain) Qty: 14 0RF No Action prenat.vits,peter,jfh-ifyp-eqzlt Tablet 1 tab PO DAILY
[2023-08-31 19:14] LABS: Influenza A PCR NEGATIVE (Negative); Influenza B PCR NEGATIVE (Negative); Resp Syncy Virus RNA Qual PCR NEGATIVE (Negative); SARS COV2 PCR INHOUSE NEGATIVE (Negative)
[2023-08-31 20:11] VITALS: BP 116/62; PULSE 62; RESP 16; TEMP 37.6; O2SAT 100
[2023-08-31 20:20] VITALS: BP 112/72; PULSE 81; RESP 17; TEMP 36.7; O2SAT 100
[2023-08-31 20:54] LABS: Appearance Urine Clear; Color Urine Yellow; Glucose Urine UA Negative (Negative); Leukocyte Esterase Urine Negative (Negative); Nitrite Urine Negative (Negative); PH 6.5 (5.0-9.0); Specific Gravity - Urine 1.015 (1.005-1.025); Urine Blood Negative (Negative); Urine Ketones Negative (Negative); Urine Protein Negative (Neg-Trace)
[2023-08-31 20:55] LABS: UPreg QC Valid YES; Urine Pregnancy NEGATIVE (NEGATIVE)
[2023-08-31] MEDS: Butalb/Acetamin/Caff 50/325/40 TABLET 1 TAB PO (21:29)
--- NOTE | 2023-08-31 22:30 | PC.NURSE ---
this nurse attempted to D/C patient, pt has concerns that she may need a head CT with her headache, [employer] Levar notified via [employer] connect
== END 2023-08-31 22:47 | disposition home or self-care (01) ==
PROVIDERS: Physician Assistant Medical; Emergency Provider Emergency Medicine Emergency Medical Services
DX: R51.9 Headache, unspecified (principal); Z11.52 Encounter for screening for COVID-19; Z20.828 Contact with and (suspected) exposure to other viral communicable diseases
CPT/HCPCS: 0241U; 81003; 81025; 99283; 99284

== ENCOUNTER 2024-01-04 11:34 | Emergency (ER) | payer OTHER, SELFPAY ==
[2024-01-04 12:17] VITALS: BP 101/55; PULSE 78; RESP 18; TEMP 36.8; O2SAT 100; BMI 23.6
[2024-01-04 12:38] LABS: MANUAL DIFF FLAG NO
[2024-01-04 12:43] LABS: Basophils Percent Auto 0.5 % (0-2); Eosinophils Absolute Auto 0.1 X10*3/uL (0.0-0.4); Eosinophils Percent Auto 2.7 % (0-4); Hematocrit 32.6 % (37.0-47.0); Hemoglobin 9.6 g/dl (12.0-16.0); Imm Gran Abs Auto 0.02 X10*3/uL (0.00-0.03); Imm Gran Pct Auto 0.5 % (0.0-0.4); Lymphocytes Absolute Auto 1.1 X10*3/uL (1.2-4.9); Lymphocytes Percent Auto 27.4 % (20-40); Mean Corpuscular HGB Conc 29.4 g/dl (31.0-35.0); Mean Corpuscular Hemoglobin 20.7 pg (27.0-33.0); Mean Corpuscular Volume 70.4 fL (80.0-98.0); Mean Platelet Volume 9.2 fL (9.4-12.3); Monocytes Absolute Auto 0.6 X10*3/uL (0.1-1.2); Monocytes Percent Auto 13.6 % (2-11); Neutrophils Absolute Auto 2.2 x10*3/uL (2.0-8.3); Neutrophils Percent Auto 55.3 % (45-73); Platelet Count 422 X10*3/uL (160-400); Red Blood Count 4.63 X10*6/uL (4.20-5.50); Red Cell Distribution Width 17.8 % (11.0-16.0); White Blood Count 4.1 X10*3/uL (4.8-10.8)
[2024-01-04 12:44] LABS: Appearance Urine Clear; Color Urine Yellow; Glucose Urine UA Negative (Negative); Leukocyte Esterase Urine Negative (Negative); Nitrite Urine Negative (Negative); PH 5.5 (5.0-9.0); Specific Gravity - Urine 1.025 (1.005-1.025); Urine Blood Negative (Negative); Urine Ketones Negative (Negative); Urine Protein Negative (Neg-Trace)
[2024-01-04 12:52] LABS: UPreg QC Valid YES; Urine Pregnancy NEGATIVE (NEGATIVE)
[2024-01-04 12:56] LABS: Alanine Aminotransferase 10 U/L (0-31); Albumin Level 4.4 g/dL (3.5-5.0); Alkaline Phosphatase 76 U/L (39-117); Anion Gap 12 (12-20); Aspartate Amino Transferase 19 U/L (5-31); Bilirubin Total 0.3 mg/dL (0.0-1.0); Blood Urea Nitrogen 8 mg/dL (9-16); Calcium 9.2 mg/dL (8.4-10.2); Carbon Dioxide 23 mmol/L (22-29); Chloride 106 mmol/L (96-108); Creatinine Clr Calc Pharmacy 82.5; Estimated Glomerular Filt Rate > 60; Glucose Random 94 mg/dL (60-115); Potassium 3.7 mmol/L (3.3-5.1); Sodium 137 mmol/L (135-145); Total Protein 8.4 g/dL (6.5-8.0)
== END 2024-01-04 17:14 | disposition left against medical advice (07) ==
PROVIDERS: Emergency Provider Emergency Medicine
DX: R10.2 Pelvic and perineal pain (principal); Z79.899 Other long term (current) drug therapy
CPT/HCPCS: 36415; 80053; 81003; 81025; 85025; 99282; 99283

== ENCOUNTER 2024-01-05 06:51 | Emergency (ER) | payer OTHER, SELFPAY ==
--- NOTE | ~2024-01-05 | US_ITS ---
EXAMINATION: US ABDOMEN COMPLETE CLINICAL INFORMATION: Lower abdominal and flank pain. COMPARISON: None available. TECHNIQUE: Real-time imaging of the abdominal viscera. FINDINGS: PANCREAS: Normal. ABDOMINAL AORTA: The proximal, mid, and distal segments are normal in caliber. INFERIOR VENA CAVA: Visualized portions are normal. LIVER: Diffusely mildly increased echogenicity. No focal hepatic lesion. There is no intrahepatic biliary duct dilatation seen. GALLBLADDER: Normal. The gallbladder is physiologically distended without evidence of stones, sludge, polyps, wall thickening or pericholecystic fluid. No tenderness elicited during study. COMMON BILE DUCT: Normal in caliber measuring 0.4 cm in diameter. RIGHT KIDNEY: Normal. No hydronephrosis. No renal calculi or focal parenchymal lesions. The kidney measures 10.6 cm in maximum dimension. LEFT KIDNEY: Normal. No hydronephrosis. No renal calculi or focal parenchymal lesions. The kidney measures 10.5 cm in maximum dimension. SPLEEN: Normal. The spleen measures 10.1 cm in maximum dimension. FREE FLUID: None. US/US abdomen complete IMPRESSION: Mild hepatic steatosis.
[2024-01-05 07:14] VITALS: BP 93/49; PULSE 90; RESP 16; TEMP 36.9; O2SAT 100; BMI 24.0
[2024-01-05 09:10] VITALS: BP 104/71; PULSE 93; RESP 18; TEMP 37; O2SAT 98
--- NOTE | 2024-01-05 09:35 | ED.ABDPAIN ---
HPI - Abdominal Pain General Chief Complaint: Abdominal Pain Stated Complaint: Abd pain Time Seen by Provider: 01/05/24 09:08 Source: patient, RN notes reviewed and old records reviewed Mode of arrival: ambulatory History of Present Illness ED Provider: Christine Carbajal PA-C HPI narrative: 23-year-old female with a past medical history of , presenting to the ED complaining of lower abdominal/suprapubic pain with intermittent radiation to bilateral flank x4 days. Reports pain is constant with fluctuating intensity. Admits to 1 episode of dysuria. Denies fever, chills, nausea, vomiting, hematuria, vaginal bleeding/discharge MD elicited complaint: abdominal pain and flank pain Related Data Home Medications ?Medication ?Instructions ?Recorded ?Confirmed prenat.vits,peter,pva-eblz-gnkoh 1 tab PO DAILY 08/11/22 Previous Rx's ?Medication ?Instructions ?Recorded ptcdtsdbpo-wgrjaqddrjnhs-ibhicygz 1 cap PO Q8H PRN pain #14 caps 08/31/23 50 mg-300 mg-40 mg capsule (Fioricet) Allergies Allergy/AdvReac Type Severity Reaction Status Date / Time No Known Allergies Allergy Verified 01/05/24 07:17 Review of Systems Review of Systems Constitutional: No Fever, No Chills ENT/Mouth: No Ear Pain, No sore throat, No Rhinorrhea, No Swallowing Difficulty Cardiovascular: No Chest Pain, No SOB Respiratory: No Cough, No Sputum, No Wheezing Gastrointestinal: No Nausea, No Vomiting, No Diarrhea, No Constipation, + Abdominal pain Genitourinary: +Dysuria, No Urinary Frequency, No Hematuria, No Urinary Incontinence/retention, No Urgency, + Flank Pain Musculoskeletal: No joint pain, No Myalgias, No Joint Swelling Skin: No Skin Lesions, No rash Neuro: No Weakness Yes all other systems are reviewed and are negative Constitutional: Reports as per HPI [facility] Past Medical History Attestation statement: The following information was validated with the patient. Source: old records reviewed Medical History Go syndrome Surgical History Hx of external ear surgery Hx of adenoidectomy Social History Social History Alcohol intake: never Patient Tobacco Use Status: Never used Tobacco Smoked in Last 30 Days: No Use of substances other than those prescribed or required for medical reasons: No Advance Directives: No Advance Directives Information Provided: Yes Patient : No Physical Exam ED Vital Signs: Vital Signs - 24 hr 01/05/24 07:14 01/05/24 09:10 01/05/24 12:40 Temperature 98.5 F 98.6 F 98.6 F Pulse Rate 90 93 93 Respiratory Rate 16 18 18 Blood Pressure 93/49 L 104/71 104/71 Pulse Oximetry 100 98 98 Oxygen Delivery Method Room Air Room Air Room Air BMI result Body Mass Index 24.0 Const General: cooperative, healthy appearing and no acute distress Orientation/consciousness: patient oriented x3 Limitations: no limitations HENMT Head: Yes normal to inspection and Yes atraumatic Ears: hearing grossly normal bilaterally General nose exam: Normal external nose present Face and sinus: Yes normal facial exam Eyes General: appearance normal, both eyes and all related structures EOM: EOMs intact bilaterally Neck Neck: Yes normal visual inspection and Yes no meningeal signs Resp Effort & Inspection: normal respiratory effort and no respiratory distress Auscultation: clear to auscultation bilaterally Cardio Rate: regular rate Heart sounds: S1 normal heart sound present and S2 normal heart sound present GI Inspection: Yes normal to inspection Palpation (GI): Soft to palpation, nontender, no guarding and not rigid General: Yes no CVA tenderness Back/Spine/Pelvis Back: no CVA tenderness Skin Rashes: no rashes Wounds: no wounds Neuro General: patient oriented x3, tone normal and no meningeal signs Cranial nerves: Yes CN's II-XII intact bilaterally Gait exam (Neuro): Normal gait present Extrem General: Yes normal to inspection Course Course Course Narrative: -937--no leukocytosis. Chronic anemia at patient's baseline -labs otherwise reassuring. UA negative, urine negative 127-- US abdomen completeIMPRESSION: Mild hepatic steatosis. > on re-evaluation patient reports symptomatic improvement after IV Toradol given in the ED. Results discussed with patient including worrisome signs and symptoms and strict return precautions, and when to return to the emergency department. They verbalized understanding and feel safe for discharge at this time. Medical Decision Making Medical Decision Making MDM Narrative: 23-year-old female with a past medical history of , presenting to the ED complaining of lower abdominal/suprapubic pain with intermittent radiation to bilateral flank x4 days. On exam BP soft, appears to be patient's baseline, NAD, nontoxic appearing, abdomen soft/nontender, no CVAT. Concern for UTI vs pyelonephritis vs renal stone/colic. Lower suspicion for obstruction, appendicitis/diverticulitis, ovarian torsion or cholecystitis Plan: Labs & UA reviewed from yesterday, will obtain ultrasound, IVF and pain control Please refer to course for remaining clinical decision making, interpretation of labs/imaging results, and discussions with consultants and/or family members. Differential Diagnosis Differential Diagnoses: The differential diagnosis associated with the presentation includes As above Admission/Observation Consideration of admission/observation: Escalation of care including admission/observation considered Lab Data MDM Lab Attestation statement: I reviewed the patient's lab results. Labs: Lab Results 01/05/24 Range/Units 09:57 Lipase 27 (8-78) U/L Independent Interpretation I performed an independent interpretation of an: Ultrasound Radiology Impression Discussion of test interpretation with radiology: I have reviewed the radiologist's reading. External Record Review External record reviewed: Inpatient record, Office record, Outpatient record, Prior outpatient labs, Prior outpatient radiology, Primary care record and Outside ED record Tests considered The following testing was considered but not selected: As above Prescription Management I considered prescription management with: Pain Medication Medications Administered Discontinued Medications Generic Name Dose Route Start Last Admin Trade Name Freq PRN Reason Stop Dose Admin Sodium Chloride 1,000 mls @ 999 mls/hr 01/05/24 09:30 01/05/24 11:57 Ns IV 01/05/24 10:30 Infused .Q1H1M SAMANTHA Infusion Ketorolac Tromethamine 15 mg 01/05/24 09:29 01/05/24 10:00 Ketorolac Tromethamine 15 Mg/Ml Vial IVPUSH 01/05/24 09:30 15 mg ONCE ONE Administration Discharge Plan Discharge Clinical Impression: Lower abdominal pain Patient Disposition: Home, Self-Care Instructions: Abdominal Pain (ED) Additional Instructions: Your blood work and urine are reassuring Your ultrasound shows fatty liver, please avoid fatty/greasy foods, alcohol, and excessive Tylenol Follow-up with your primary care doctor as well as Gastroenterology If symptoms persist or worsen, pain becomes unbearable you are unable to eat or drink return to the ED Prescriptions: No Action ukxjxnujzc-ildkdnliqgxce-fpfb [Fioricet] 50-300-40 mg capsule 1 cap PO Q8H PRN (Reason: pain) Qty: 14 0RF prenat.vits,peter,arr-lcco-krwhq Tablet 1 tab PO DAILY Referrals: [facility] [place] [facility] [Provider Group] [facility] [place] [facility] [place]Provider Group] [facility] [place] [facility] [Provider Group] Interventions: ED Discharge Assessment Last Done: 01/05/24 12:40 Discharge Date/Time: 01/05/24 12:41 Print Language: Albanian
[2024-01-05] MEDS: Ketorolac Tromethamine 15 MG/ML VIAL IVPUSH (10:00)
[2024-01-05] MEDS: 0.9 % Sodium Chloride 1,000 ML 999 ML IV (10:01)
[2024-01-05 10:24] LABS: Lipase 27 U/L (8-78)
[2024-01-05 12:40] VITALS: BP 104/71; PULSE 93; RESP 18; TEMP 37; O2SAT 98
== END 2024-01-05 12:41 | disposition home or self-care (01) ==
PROVIDERS: Physician Assistant; Emergency Provider Emergency Medicine
DX: R10.30 Lower abdominal pain, unspecified (principal); R30.0 Dysuria
CPT/HCPCS: 36415; 76700; 83690; 96361; 96374; 99284; 99285; J1885

== ENCOUNTER 2024-07-12 08:56 | Emergency (ER) | payer OTHER, SELFPAY ==
--- NOTE | 2024-07-12 | ECG_ITS ---
Test Reason : EPIGASTRIC PAIN Blood Pressure : */* mmHG Vent. Rate : 115 BPM Atrial Rate : 115 BPM P-R Int : 128 ms QRS Dur : 74 ms QT Int : 312 ms P-R-T Axes : 71 74 55 degrees QTcB Int : 431 ms Sinus tachycardia Otherwise normal ECG When compared with ECG of 19-Dec-2021 15:09, Nonspecific T wave abnormality now evident in Anterior leads Referred By: Generic ED Physician Electronically Signed By: Raphael Guadalupe
[2024-07-12 09:10] VITALS: BP 106/59; PULSE 118; RESP 20; TEMP 38.2; O2SAT 99; BMI 22.9
[2024-07-12] MEDS: Acetaminophen 325 MG TABLET 650 MG PO (09:15)
[2024-07-12] MEDS: Ondansetron ODT 4 MG TAB.RAPDIS TRANSLINGU (09:15)
--- OUTSIDE RECORDS SUMMARY | 2024-07-12 09:28 | XMS_ITS | Continuity of Care Document ---
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 Source varicella virus vaccine 2021 NIESHA membreno Arm [id number] 21 [employer] complet ed varicella virus vaccine 09/10/21 Given 0117A-A F-ASU-5 9th MDW-A [place] measles/mumps /rubella virus vaccine 2021 NIESHA Mendez ht Arm [id number] 03 [employer] complet ed measles/m umps/rube lla virus vaccine 09/10/21 Given 0117A-A F-ASU-5 9th MD-A [place] hepatitis B adult vaccine 2021 NIESHA Lopes [place], left (delt oid) [id number] 43 GlaxoSmithKli ne complet ed hepatitis B adult vaccine 09/10/21 Given 0117A-A F-ASU-5 9th MDW-A [place] varicella virus vaccine 2021 GATO membreno Arm [id number] 21 [employer] complet ed varicella virus vaccine 07/30/21 Given 0117A-A F-ASU-5 9th MDW-A [place] measles/mumps /rubella virus vaccine 2021 GATO Mendez ht Arm [id number] 03 [employer] complet ed measles/m umps/rube lla virus vaccine 07/30/21 Given 0117A-A F-ASU-5 9th MDW-A [place] hepatitis B adult vaccine 2021 GATO Lopes [place], left (delt oid) [id number] 43 GlaxoSmithKli ne complet ed hepatitis B adult vaccine 07/30/21 Given 0117A-A F-ASU-5 9th MD-A [place] adenovirus vaccine, live 2021 GATO Burr [id number] [facility] complet ed adenoviru s vaccine, live 07/30/21 Given 0117A-A F-ASU-5 9th MDW-A [place] tetanus, diphtheria, acellular pertu is 2021 SAMANTHARKELL Y Shoul [place], right (delt oid) [id number] [facility] tetanus, diphtheri a, acellular pertussis 07/26/21 Given 0117A-A F-ASU-5 9th MDW-A [place] poliovirus vaccine, inactivated 2021 SAMANTHARKELL Y Shoul [place], right (delt oid) [id number] 10 sanofi pasteur complet ed polioviru s vaccine, inactivat ed 07/26/21 Given 0117A-A F-ASU-5 9th MD-A [place] meningococcal conjugate vaccine 2021 SAMANTHARKELL Y Shoul [place], left (delt oid) [id number] 114 sanofi pasteur complet ed meningoco ccal conjugate vaccine 07/26/21 Given 0117A-A F-ASU-5 9th MDW-[place] influenza virus vaccine, inactivated 2021 SAMANTHARKELL Y Shoul [place], left (delt oid) [id number] [facility] ed influenza virus vaccine, inactivat ed 07/26/21 Given 0117A-A F-ASU-5 9th MDW-A [place] COVID Vaccine Moderna 2020 [id number] complet ed COVID Vaccine Moderna 05/17/21 Given Ambulat ory Pharmac y COVID Vaccine Moderna 2020 [id number] complet ed COVID Vaccine Moderna 04/19/21 Given Ambulat ory Pharmac y Results Combined list of recent chemistry, hematology and other laboratory results from Department of Defense and Veterans Affairs, ranging from 15 months to all on record, depending upon the facility. Order Name Results Value Reference Range Date Interpretation Specimen Comments Source Infectio us Disease HIV-1/O/2 Non-Reac tive 6 (09/05/23 11:08 AM) 09/04 N Interpretiv e Data: INTERPRETAT ION: This method is a screening procedure for the detection of HIV p24 Antigen and Antibodies to HIV-1, including Group O, and/or HIV-2. NON-REACTIV E: HIV-1 antigen and HIV-1 / HIV-2 antibodies were not detected. No laboratory evidence of HIV infection. A negative test result does not exclude the possibility of exposure to or infection with HIV. HIV antibodies and/or p24 antigen may be undetectabl e in some stages of the infection and in some clinical conditions. If acute HIV infection is suspected, consider submitting another specimen to a reference laboratory for HIV-1 RNA. SCREEN REACTIVE - CONFIRMATIO N TO FOLLOW: Possible presence of HIV-1antibo dies, HIV-2 antibodies and/or HIV-1 p24 antigen. Specimen will reflex to the confirmatio n testing that fulfills the Center for Disease Control and Prevention' s HIV diagnostic algorithm. Refer to [facility] Lab Guide for additional information : [email or web address]/ kj/[email or web address]/EPIL ab/Pages/la b_[email or web address] x Testing performed by [facility] janet flower. [facility] Nenitacella michell Sendouts Repository Sample Received (09/05/23 11:08 AM) 09/04 N [facility] Immunolo gy/Serol ogy Hep A Ab Positive 2 *ABN* (07/26/21 8:25 AM) 07/26 A Interpretiv e Data: 28 MAY 2017 Notice: Samples for thes asssay should not be taken from patients receiving therapy with high biotin doses (i.e. > 5 mg/day) until 8 hours following last biotin administrat ion. POSITIVE: Indicates prior or acute infection, or immunizatio n to Hepatitis A. BORDERLINE: Recommend resubmit specimen in two weeks for retesting. NEGATIVE: Indicates susceptibil ity to Hepatitis A infection. Updated Test Method [id number]. [facility] Immunolo gy/Serol ogy Hep B Surface Ab Negative 1 (07/26/21 8:25 AM) 07/26 N Interpretiv e Data: EXPECTED RANGE: Negative unless previous exposure or Heptavax prophylaxis A POSITIVE Anti-HBs indicates previous exposure to the virus or acquired immunity through Heptavax prophylaxis . An INDETERMINA TE result should be further accessed by associated risk factors and the use of additional diagnostic information , or another sample may be collected and tested. [facility] Chemistr y Beta hCG Qnt <0.2 m[iU]/mL 07/26 [facility] Infectio us Disease Rubella IgG Antibody Non-Immu ne *ABN* (07/26/21 8:25 AM) 07/26 A [facility] Infectio us Disease Mumps IgG Antibody Immune (07/26/21 8:25 AM) 07/26 N [facility] Infectio us Disease Rubeola IgG Antibody Non-Immu ne *ABN* (07/26/21 8:25 AM) 07/26 A [facility] Infectio us Disease VZV IgG Scrn Non-Immu ne *ABN* (07/26/21 8:25 AM) 07/26 A [facility] Infectio us Disease HIV-1/O/2. EPI NON-REAC TIVE 07/26 Result Comment: INTERPRETAT ION(S): This method is a screening procedure for the detection of HIV p24 Antigen and Antibodies to HIV-1, including Group O, and/or HIV-2. NON-REACTIV E: HIV-1 antigen and HIV-1 / HIV-2 antibodies were not detected. No laboratory evidence of HIV infection. A negative test results does not exclude the possibility of exposure to or infection with HIV. HIV antibodies and/or p24 antigen may be undetectabl e in some stages of the infection and in some clinical conditions. If acute HIV infection is suspected, consider submitting another specimen to a reference laboratory for HIV-1 RNA. SCREEN REACTIVE - CONFIRMATIO N TO FOLLOW: Possible presence of HIV-1 antibodies, HIV-2 antibodies and/or HIV-1 p24 antigen. Specimen will reflex to the confirmatio n testing that fulfills the Center for Disease Control and Prevention' s HIV diagnostic algorithm. Refer to [facility] Lab Guide for additional information : [email or web address]/k j/kx5/Bobby b/Pages/lab _guide.aspx Testing performed by [facility] iluminescen ce. Performed by: Epidemiolog y Laboratory Service [facility] [address] [place] [address], [place] [address] [facility] Hematolo gy Sickle Cell Screen Negative *NA* (07/26/21 8:25 AM) 07/26 [facility] Miscella neous Sendouts DNA Sample Collected? Yes (07/26/21 8:25 AM) 07/26 N [facility] Chemistr y G6PD 15.6 unit/gHb 07/26 N Interpretiv e Data: All persons below our lower limit of 7 are considered Deficient .G6PD reported value is a calculation based on G6PD and hemoglobin values. Values greater than the upper limit of our reference range are considered Normal in accordance with guidance from the Debra Textbook on Clinical Chemistry, which states that values greater than the upper limit of the reference range are encountered in any condition associated with younger than normal RBC's (as in hemolytic anemias not due to G6PD deficiency) , but are of no clinical significanc e. Certain drugs and other substances are known to influence circulating levels of G6PD. Reticulocyt es havehigher G6PD levels than mature erythrocyte s, so samples should not be collected after a severe hemolytic crisis. Copper completely inhibits G6PD at a concentrati on of 100 umol/L, and sulfate ions (0.005 mol/L) decrease observed levels of G6PD activity. This test was developed and its performance characteris tics evaluated by [facility]. It has not been cleared or approved by the U.S. Food Drug Administrat ion (FDA). FDA does not require this test to go through premarket FDA review.The test isused for clinical purposes and should not be regarded as investigati onal or for research. This laboratory is certified under the Clinical Laboratory Improvement Amendments of 1988 ( CLIA ) as qualified to perform high complexity clinical laboratory testing. [facility] Blood Bank ABO/Rh Type B POS 07/26 [facility] Miscella neous Sendouts Repository Sample.EPI RECEIVED 07/26 Result Comment: INTERPRETAT ION(S): Performed by: Epidemiolog y Laboratory Service [facility] [address] [place] [address], [place] [address] [facility] Molecula r Infectio us Disease GC NAAT Negative (07/26/21 8:25 AM) 07/26 N [facility] Molecula r Infectio us Disease Chlamydia NAAT Negative (07/26/21 8:25 AM) 07/26 N [facility] Vital Signs Combined list of inpatient and outpatient Vital Signs from Department of [facility] and Veterans Affairs, ranging from 12 months to all on record, depending upon the facility. Vital Sign Value Date Comments Source No data available for this section Ambulatory Pharmacy Encounters Combined list of: 1) Encounters from [facility] facilities going back up to thelast 18 months. 2) Encounters from the [facility] facilities going back up to 280 months. Location Location Details Encounter Type Encounter Number Reason For Visit Attending Provider ADM Date DC Date Status Disposition Source [id number] AMDS Outpatient [id number] SILVIA MARIAJose 07/31 Discharge Disposition: Home or Self Care 8344R-4 [id number] AMDS [id number] AMDS Outpatient [id number] SILVIA MARIAJose 09/03 Discharge Disposition: Home or Self Care 8344R-[id number] AMDS [id number] AMDS Outpatient [id number] SILVIA MARIAJose 09/04 Discharge Disposition: Home or Self Care 8344R-4 39 AMDS [id number] AMDS Between Visit [id number] 07/04 Discharge Disposition: Home or Self Care 8344R-4 39 AMDS Procedures Combined list of: 1) Procedures from [facility] facilities going back up to thelast 18 months, not all [place] non-surgical procedures are included; 2) All procedures from the Department [facility] facilities. Procedure Procedure Type Code Date Perfomer Comments Sourc e No data available for this section Ambulatory P harmacy Social History Combined list of available smoking, tobacco, and other social history from Department of Defense and Veterans Affairs facilities. Social History Type Response Date Comment Sourc e Female 07/24/2021 Ambulatory Pha rmacy Sexual Orientation [facility] Gender identity [facility] This section is an empty soc ial history section. DoD Assessment and Plan Combined list of future care activities from Department of Defense and Veterans Affairs facilities (e.g., assessment and plan notes, appointments, orders, and referrals). Additional future care activities may be listed in the Plan of Care section. Result Assessment and Plan Date Source Assessment and Plan Extracted from:Title : PHA/MHA/LAB Author: MARIPOSA TONEY Date: 09/05/23 mbr came in for appt Addendum by CHIDI JURADO on September 05, 2023 09:45 EST ?Vitals: Blood Pressure:???99/65 Heart Rate:88 Height:56 Weight:103lbs BMI: Medications: ?None Chronic Problems: ?None 507: _ Comments: Addendum by DEVAUGHN MARCIAL on September 05, 2023 10:06 EST Chief Complaint: Member here for annual PHA.?No acute complaints.?IMR?green. HEENT:?Normal Joints:?Normal Lungs:?Normal Heart:?Normal Comments: ANNUAL PERIODIC HEALTH ASSESSMENT I. WOOL BROKER INFORMATION AND DEMOGRAPHICS (SMI) 1. Last Name: TRANG 2. First Name: IDALMIS 3. Middle Name: DARRYL 4. Assessment Date: 5. : 6. Age: 23 7. Gender: F 8. 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 Service Branch: [employer] 10. 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 Duty Station/Location: [place] 15. UIC: [id number] 16. Is this your first Periodic Health Assessment (PHA)?: N 17. Are you enrolled in a secure messaging system with your health care provider?: 18. Current contact information: Preferred Method: Day Time Phone DSN: [id number] Day Time Phone: [phone] Night Time Phone: [phone] Email 1: [email or web address] Email 2: [email or web address] Address: [address] [place] [address]: [facility]: [place] Zip Code: [address] 19. Point of contact who can always reach you: Name: Ruth Drake Phone 1: [phone] Phone 2: EMAIL: [email or web address] Address: [address] [place] [address]: [facility]: [place] Zip Code: [address] II. DEPLOYMENT INFORMATION (DEP) 1. [ 0 ] Total number of deployments in the PAST 5 YEARS 4. [ N ] Are you going to deploy within the NEXT 120 DAYS? III. 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 [ No ] Does your specialty require an operational duty physical exam? 4. [ No ] Are you currently enrolled in a medical surveillance/occupational health program?: No IV. MEDICAL CONDITIONS (МАРИЯ): 1. Since your last PHA, have you experienced any of the following health conditions, and if so, what is your status? [ ] Conditions with no medical care [ ] Conditions with medical care, but no longer under treatment [ ] Conditions with medical care, and NOW under treatment 2. Since your last PHA, have you experienced any of the following health conditions, and if so, what is your status? [ ] Conditions with no medical care [ ] Conditions with medical care, but no longer under treatment [ ] Conditions with medical care, and NOW under treatment 3. For any condition marked YES in question 1 or 2, are you currently on any profile or limited duty for that condition? [ ] Conditions 4. [ No ] Have you been based or stationed at a location where an open burn pit was used? 5. [ No ] Have you been exposed to toxic airborne chemicals or other airborne contaminants? 8. Have you had any surgery since your last PHA?: Yes 9. What was the condition(s) for which you had surgery and the type of surgery? 9.a. Condition: 5.a.1 Type of Surgery: C Section 9.b. Condition: 5.b.1 Type of Surgery: 9.c. Condition: 5.c.1 Type of Surgery: 10.a. [ No ] Since your last PHA, has a health care provider recommended surgery(s) that you have not had? 11.a. [ No ] Do you currently require hearing aids, special medical supplies, CPAP, adaptive equipment, assistive technology devices, and/or other special accommodations? 12.a. [ No ] Do you have a waiver or profile for any part of your Service's physical fitness test? 13.a. [ No ] Do you have any problems wearing a gas mask, ballistic helmet, body armor, and/or chemical/biological protective garments? 14.a. [ No ] Have you ever been told by a health care provider that you SHOULD NOT receive an immunization for medical reasons? 15.a. [ No ] Do you have a permanent profile or an Assignment Limitation Code C? 16.a. [ No ] Are you on a temporary profile or limited duty? 17. [ 0 ] During the PAST 2 years, how many times have you been placed on a temporary profile or on limited duty? V. INDIVIDUAL MEDICAL READINESS (IMR) 1. [ No ] Do you have any allergies? 3. [ Not required ] Do you have red medical warning dog tags? 4. [ No ] Do you wear corrective lenses? . BEHAVIORAL HEALTH (MHA) 1. a. [ None ] Over the PAST MONTH, what major life stressors have you experienced that are a cause of significant concern or make it difficult for you to do your work, take care of things at home, or get along with other people (for example, serious conflicts with others, relationship problems, or a legal, disciplinary or financial problem)? 2. a. [ No ] In the PAST YEAR did you receive care for any mental health condition or concern such as, but not limited to post traumatic stress disorder (PTSD), depression, anxiety disorder, alcohol abuse or substance abuse? 3. [ None ] What prescription or over-the counter medications (including herbals/supplements) for sleep, pain, combat stress, or a mental health problem are you CURRENTLY taking? 4. a. [ No ] In the past 12 months, have you gambled? 5. a. [ Never ] How often do you have a drink containing alcohol? 6. Have you ever had any experience that was so frightening, horrible, or upsetting that in the PAST MONTH, you: 6. a. [ No ] Have had nightmares about it or thought about it when you did not want to? 6. b. [ No ] Tried hard not to think about it or went out of your way to avoid situations that remind you of it? 6. c. [ No ] Were constantly on guard, watchful or easily startled? 6. d. [ No ] [place] numb or detached from others, activities, or your surroundings? 6. e. [ Not answered ] [place] guilt or unable to stop blaming yourself or others for the event(s) or any problems the event(s) may have caused? 7. Over the LAST 2 WEEKS, how often have you been bothered by the following problems? 7. a. [ Not at all ] Little interest or pleasure in doing things 7. b. [ Not at all ] Feeling down, depressed, or hopeless 8. [ No ] Would you like to schedule an appointment with a health care provider to discuss any health concern(s)? 9. [ No ] Are you interested in receiving information or assistance for a stress, emotional or alcohol concern? 10. [ No ] Are you interested in receiving assistance for a family or relationship concern? 11. [ No ] Would you like to schedule a visit with a professor of visual arts, mental health care provider, or a community support counselor? VII. FAMILY HISTORY AND LIFESTYLE (LIF) 1. [ Excellent ] Overall, how would you rate your health during the PAST MONTH? 2. [ None/Don't Know ] Member indicates that family members have the following problems 6. [ Yes ] I participate in moderate intensity physical activites at least 2.5 hours, or a combination of moderate and vigorous aerobic activites, for at least 75 minutes per week. 7. In a typical week, I do physical activities specifically designed to STRENGTHEN my muscles: [ 3 ] Day(s) per week 8. [ None ] What prescriptions or zdbd-mgz-qaeoqft medications are you CURRENTLY taking for health problems on a ROUTINE BASIS? 9. Which of the following products have you taken since your last PHA: None of the above 11. Think about the PAST 30 DAYS. How often did you eat/drink the following foods/beverages? [ 3 to 6 servings per week ] Fruits [ 1 or 2 servings per week ] Vegetables [ 1 or 2 servings per week ] Starchy Vegetables [ 3 to 6 servings per week ] Whole Grains [ 1 serving per day ] Dairy and Calcium Containing Foods [ Rarely or Never ] Fish [ 3 or more servings per day ] Lean Protein [ 1 serving per day ] Sugar-Sweetened Beverages 12. [ No ] Have you had a cholesterol check by a health director of critical care within the PAST 5 YEARS? 13.a. In the PAST 30 DAYS, which of the following products have you used on at least one day? None 15. Which of the following best describes your past tobacco use? I have never used tobacco products. 16. [ No ] Are you regularly exposed to secondhand smoke? 17. [ 5 to less than 7 hours ] During the LAST 2 WEEKS, how many hours of sleep did you get on most days? 18. [ No ] During the LAST 2 WEEKS, have you felt impaired or unable to adequately perform due to sleepiness or poor quality sleep? 19. [ No ] Have you had any unexplained weight loss or gain since your last PHA? 20. Member is not at risk for sexually transmitted infections. 22. Since your last PHA, what, if anything, have you and your partner used to keep from getting ? [ Injectable, Condoms, Withdrawal ] I am actively taking steps to prevent , including 23. [ No ] In the last year, have you or your partner had a scare, where you were not trying to get but were worried enough to use a home test? VIII. WOMEN'S HEALTH (WOM) 1. [ No ] Do you wish to receive contraceptive counseling? 2. [ I was or just delivered within the past 6 months ] Which of the following best describes you? 3. [ No ] Have you had a total hysterectomy? 4. [ No ] Are you postmenopausal and no longer experiencing menstrual cycles? 5. [ No ] Are you currently taking folic acid or a vitamin containing folic acid 6. [ No ] Do you have heavy and/or irregular menstrual cycles/pain or premenstrual syndrome (PMS)? 7. [ No ] Do you have recurrent urinary tract infections? 8. [ Yes ] Have you had a Pap test within the PAST 3 YEARS? 9. [ No ] Have you ever had an abnormal Pap Test? 13. [ No ] Do you have a history of gestational diabetes? IX. RESERVE COMPONENT (RES) 1. [ No ] Do you have an injury, illness, Or disease which was incurred or aggravated while in a duty status since your last PHA? 4. [ Yes - Other health insurance ] Are you currently coverered under a health insurance policy? 5.a. [No, I have never applied for Worker's Compensation ] Do you have any current physical or mental health limitations related to a Worker's Compensation claim? 6. [ No ] Have you applied for or have you received a VA disability rating? X. OTHER MEDICAL (OTH) 1. [ 0 ] Rate the amount of pain you have had, on average, over the PAST 24 HOURS 3. [ No ] Since your last PHA, have you received care or treatment for any medical and/or mental health condition(s) from a civilian or non- facility? 5. Member acknowledged responsibility for reporting health issues. 7. [ No ] Woud you like to schedule an appointment with a health care provider to discuss any health concerns? XI. SEPARATION AND FPC 1. 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 PART B. RECORD REVIEW AND RECOMMENDATIONS I. RECORD REVIEWER INFORMATION 1. Last Name: YORDAN MA 2. First Name: REGINALD 3. Middle Name: 4. 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 EMAIL: [email or web address] 8. Facility: [facility] 9. Unit: [facility] 10. Address: [address] [place] [address] 11. State: [place] 12. Zip Code: [address] 13. Phone: [phone] 14. Date Record Review: II. MEDICAL SCREENING 1. 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 [ 4 feet 9 inches Date: ] modular set crew member's most recently documented height 3. [ 98 pounds Date: ] modular set crew member's most recently documented weight 4. [ 88/60 Date: ] modular set crew member's most recently documented blood pressure reading 5. [ No ] Does the modular set crew member have a history of abnormal blood pressure since their last PHA? 6. [ Yes ] Does the modular set crew member have a laboratory test of sickle cell trait documented in their permanent medical record? 7. [ No Cholesterol Test Documented ] What is the date of the modular set crew member's most recently documented cholesterol test? 9. [ No Active Medications Documented ] List of modular set crew member's active medications listed in their permanent medical record 10. [ No ] Is there a discrepancy between the active medication record review and the modular set crew member's self-reported list of medications? 11. [ No Outside Care Documented ] List documented significant care the modular set crew member has received since their last PHA from a provider OUTSIDE the Health System 12. [ No ] Is there a discrepancy between the modular set crew member's list of OUTSIDE care (from OT5), and the OUTSIDE care found in the record? 13. [ No Inside Care Documented ] List documented significant care the modular set crew member has received since their last PHA from a provider INSIDE the [facility] 14. Is there documentation in the record for each surgery listed below? /C Section: Yes 15. [ Not Answered ] Confirm that vaccine exemptions are listed in the medical record for each vaccine listed IV. FAMILY HISTORY AND LIFESTYLE 1. [ Yes ] Does the [id number] reflect the modular set crew member's reported family history? V. WOMEN'S HEALTH 1. [ No ] Does the modular set crew member have an appropriate profile and/or waiver [facility] Service policy? 3. [ No Documented Pap Test ] Date and result of the most recent Pap test 4. [ ] Notes from review of health records associated with history of abnormal Pap, colposcopy, excisional procedure, or cryotherapy VII. INDIVIDUAL MEDICAL READINESS 1. 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 3. [ Classification: 4 ] Most recently documented dental exam 4. [ Yes ] Is the modular set crew member current on all required immunizations in the immunization tracking system? 6. Does the modular set crew member have the following laboratory tests documented in their permanent medical record? [ Yes ] HIV test within the PAST 24 months [ Yes ] G6PD results on file [ Yes ] Blood type and Rh on file [ Yes ] DNA test on file IX. ADDITIONAL RECORD REVIEWER COMMENTS 1. This record review does NOT have a need for provider notification or referral.2. Additional comments about this record review that need to be forwarded to the Health Machinery Repair Maintenance Supervisor completing PART C: RR completed. JLV did not show any significant findings. Member had a Csetion. No profiles. No deployments. No health issues. Date Record Review Completed: --------- PART C. HEALTH CARE PROVIDER I. MENTAL HEALTH ASSESSMENT (MHA) PROVIDER INFORMATION 1. Last Name: AGGIE 2. First Name: DEVAUGHN 3. Middle Name: 4. Service Branch: [employer] 5. Status: Reservist 6. Title: Physician (, ) 7. EMAIL: [email or web address] 8. Facility: [facility] 9. Unit: [address] [place], [place] [address] 10. Address: [address] [place] [address] 11. State: [place] 12. Zip Code: [address] 13. Phone: [phone] 14. Date HCP Review initiated: 1. Member marked that they did not have a concern or a difficulty with a major life stressor. 2. Address concerns identified on member questions 2 and 3. History of mental health care: N/A Member's response: Provider's comments: Medications: N/A Member's response: Provider's comments: 3. Member's AUDIT-C screening score was 0. (nothing required) 4. Member did not varghese yes on two or more of questions 6a through 6e. 5. Member did not varghese More than half the days or nearly every day on question 7a or 7b. 6. Suicide risk evaluation. 6. a. Ask: Over the past month, have you wished you were or wished you could go to sleep and not wake up?: No 6. b. Ask: Have you actually had any thoughts of killing yourself?: No 6. f. 1. Ask: In you lifetime, have you done anything, started to do anything, or prepared to do anything to end your life?: No 6. g. Further risk assessment comments: 7. Member states that they have not had thoughts or concerns over the past month that they might hurt or lose control with someone. 9. Summary of Provider's identified concerns needing referrals: None 11. Comments: 13. Supplemental services recommended/information provided: No supplemental services required Date MHA Certified: III. PERIODIC HEALTH ASSESSMENT (PHA) PROVIDER INFORMATION 1. Last Name: ALEXARMANDO 2. First Name: DEVAUGHN 3. Middle Name: 4. Service Branch: [employer] 5. Status: Reservist 6. Title: Physician (DO BRENNA) 7. EMAIL: [email or web address] 8. Facility: [facility] 9. Unit: [facility] 10. Address: [facility] [place] 11. State: [place] 12. Zip Code: [address] 13. Phone: [phone] 14. Date HCP Review initiated: IV. PERIODIC HEALTH ASSESSMENT PROVIDER RECOMMENDATIONS and REFERRALS 1. Provider concerns with this assessment: No issues or concerns identified V. SUMMARY AND COMMENTS 1. Additional information summarizing findings during the modular set crew member assessment: 2. Provider Comments: No medical concern. . INDIVIDUAL MEDICAL READINESS DISPOSITION DETERMINATION МАРИЯ: Ready DEN: Ready IMM: Ready LAB: Ready ME: Ready IMR Status: Partially Medically Ready VII. 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 Reference [facility] [phone] Yes (modular set crew member DOES NOT currently have a medical condition that limits deployability) Date PHA Completed: END OF [id number] REPORT Impression:Meets?medical standards per SEVERINO 48-123/MSD. Disposition:?No AF469 changes based on this encounter.[employer] Qualified. Extracted from:Title: Audiology Outpatient Note Author: GALO BRANDT Date: 08/05/21 1. ARE YOU CURRENTLY: a. Being treated for an ear infection? NO 2. HAVE YOU HAD: a. PE tubes within the last 3 years? NO b. Surgery in ear canal or middle ear? NO 3. DO YOU EVER: a. Experience tinnitus (ringing or buzzing) in the ears? NO 07/12/2024 Ambulatory Pharmacy Functional Status Combined list of recent functional and cognitive assessments recorded at [employer] [facility] [employer] (VA).VA Functional Finney Measurement (FIM) Scale: 1 = Total Assistance (Subject = 0% +), 2 = Maximal Assistance (Subject = 25% +), 3 = Moderate Assistance (Subject = 50% +), 4 = Minimal Assistance (Subject = 75% +), 5 = Supervision, 6 = Modified Finney (Device), 7 = Complete Finney (Timely, Safely). Assessment Date/Time Source Assessment Type Assessment Skill Assessment Score Assessment Details No data available for this section
[2024-07-12 09:53] LABS: MANUAL DIFF FLAG NO
[2024-07-12 09:57] LABS: Basophils Percent Auto 0.2 % (0-2); Eosinophils Percent Auto 0.7 % (0-4); Hematocrit 29.4 % (37.0-47.0); Imm Gran Abs Auto 0.02 X10*3/uL (0.00-0.03); Imm Gran Pct Auto 0.3 % (0.0-0.4); Lymphocytes Absolute Auto 0.2 X10*3/uL (1.2-4.9); Lymphocytes Percent Auto 2.6 % (20-40); Mean Corpuscular HGB Conc 30.6 g/dl (31.0-35.0); Mean Corpuscular Hemoglobin 21.6 pg (27.0-33.0); Mean Corpuscular Volume 70.7 fL (80.0-98.0); Monocytes Absolute Auto 0.7 X10*3/uL (0.1-1.2); Monocytes Percent Auto 11.3 % (2-11); Neutrophils Percent Auto 84.9 % (45-73); Platelet Count 318 X10*3/uL (160-400); Red Blood Count 4.16 X10*6/uL (4.20-5.50); Red Cell Distribution Width 16.9 % (11.0-16.0); White Blood Count 5.9 X10*3/uL (4.8-10.8)
[2024-07-12 10:15] LABS: Alanine Aminotransferase 8 U/L (0-31); Albumin Level 4.1 g/dL (3.5-5.0); Alkaline Phosphatase 67 U/L (39-117); Anion Gap 9 (12-20); Aspartate Amino Transferase 22 U/L (5-31); Bilirubin Total 0.3 mg/dL (0.0-1.0); Blood Urea Nitrogen 8 mg/dL (9-16); Calcium 8.6 mg/dL (8.4-10.2); Carbon Dioxide 24 mmol/L (22-29); Chloride 107 mmol/L (96-108); Creatinine Clr Calc Pharmacy 89.7; Estimated Glomerular Filt Rate > 60; Glucose Random 97 mg/dL (60-115); Potassium 3.4 mmol/L (3.3-5.1); Sodium 137 mmol/L (135-145); Total Protein 7.6 g/dL (6.5-8.0)
[2024-07-12 10:31] LABS: Influenza A PCR POSITIVE (Negative); Influenza B PCR NEGATIVE (Negative); Resp Syncy Virus RNA Qual PCR NEGATIVE (Negative); SARS COV2 PCR INHOUSE NEGATIVE (Negative)
[2024-07-12 12:12] LABS: Lipase 22 U/L (8-78)
[2024-07-12 12:18] VITALS: BP 103/59; PULSE 122; RESP 20; TEMP 37.6; O2SAT 97
[2024-07-12 12:20] LABS: HCG Quantitative < 2 mIU/mL
--- NOTE | 2024-07-12 12:29 | ED.GENADULT ---
HPI - General Adult General Chief complaint: Nausea/Vomiting/Diarrhea Stated complaint: Fever, vomiting Time Seen by Provider: 07/12/24 12:18 Source: patient Mode of arrival: ambulatory Limitations: no limitations History of Present Illness ED Provider: Jason Martinez HPI narrative: 24-year-old female with microcytic anemia presents to the ED for nausea, vomiting, back pain, chills, and epigastric pain since last night. Patient denies any chest pain, shortness of breath, coughing Related Data Home Medications ?Medication ?Instructions ?Recorded ?Confirmed prenat.vits,peter,oaz-tgxi-iojep 1 tab PO DAILY 08/11/22 Previous Rx's ?Medication ?Instructions ?Recorded wjbeabivyo-mnpnbnfqsuhkw-mtdnirjz 1 cap PO Q8H PRN pain #14 caps 08/31/23 50 mg-300 mg-40 mg capsule (Fioricet) oseltamivir 75 mg capsule (Tamiflu) 75 mg PO BID 5 days #9 caps 07/12/24 Allergies Allergy/AdvReac Type Severity Reaction Status Date / Time No Known Allergies Allergy Verified 07/12/24 09:11 Review of Systems Review of Systems: nuasea, vomitting, epigastric pain Yes all other systems are reviewed and are negative PMFSH Past Medical History Medical History Go syndrome Surgical History Hx of external ear surgery Hx of adenoidectomy Social History Social History Alcohol intake: never Patient Tobacco Use Status: Never used Tobacco Advance Directives: No Advance Directives Information Provided: Yes Physical Exam ED Vital Signs: Vital Signs - 24 hr 07/12/24 09:10 07/12/24 12:18 07/12/24 14:55 Temperature 100.7 F H 99.7 F 99.2 F Pulse Rate 118 H 122 H 98 Respiratory Rate 20 20 14 Blood Pressure 106/59 L 103/59 L 94/48 L Pulse Oximetry 99 97 99 Oxygen Delivery Method Room Air Room Air Room Air 07/12/24 16:35 Temperature Pulse Rate 105 H Respiratory Rate 16 Blood Pressure 108/63 Pulse Oximetry 98 Oxygen Delivery Method Room Air BMI result Body Mass Index 22.9 Const General: cooperative, healthy appearing, comfortable, no acute distress, well developed, alert, awake and Physically active Orientation/consciousness: patient oriented x3 [facility] Head: Yes normal to inspection, Yes No palpable skull fracture present, Yes normocephalic and Yes atraumatic Ears: hearing grossly normal bilaterally, external ears normal, TM's normal bilaterally, TM normal on the right, TM normal on the left, EAC's normal, mastoids normal and no periauricular adenopathy Throat: Yes posterior oropharynx normal, Yes tonsils normal and Yes uvula midline Eyes General: appearance normal, both eyes and all related structures Neck Neck: Yes normal visual inspection, Yes full ROM, Yes no lymphadenopathy, Yes no meningeal signs, Yes trachea midline, Yes supple, No anterior neck swelling and No tender Chest Chest palpation & inspection: normal inspection of the chest and normal palpation of entire chest wall Resp Effort & Inspection: normal respiratory effort and able to speak in complete sentences Auscultation: clear to auscultation bilaterally Cardio Jugular venous distension: no JVD Heart sounds: S1 normal heart sound present and S2 normal heart sound present GI Inspection: Yes normal to inspection Palpation (GI): Soft to palpation, not firm, nontender, no guarding and not rigid General: Yes no CVA tenderness Back/Spine/Pelvis Back: no CVA tenderness and No back tenderness Skin General skin exam: no rashes or lesions noted, elasticity normal and turgor normal Neuro General: patient oriented x3, gait normal, tone normal, moves all extremities, Normal light touch and pain sensation, no meningeal signs, no focal motor deficits, CN's II-XI intact bilaterally and normal sensation to monofilament Extrem General: Yes normal to inspection, Yes full ROM and Yes capillary refill normal Psych Appearance: grossly normal, well kempt and not disheveled Medications Administered Discontinued Medications Generic Name Dose Route Start Last Admin Trade Name Freq PRN Reason Stop Dose Admin Acetaminophen 650 mg 07/12/24 09:13 07/12/24 09:15 Acetaminophen 325 Mg Tablet PO 07/12/24 09:14 650 mg ONCE ONE Administration Lactated Ringer's 1,000 mls @ 999 mls/hr 07/12/24 13:15 07/12/24 16:18 Lr IV 07/12/24 14:15 Infused .Q1H1M SAMANTHA Infusion Lactated Ringer's 1,000 mls @ 999 mls/hr 07/12/24 13:09 07/12/24 16:18 Lr IV 07/12/24 14:09 Infused .Q1H1M STA Infusion Ibuprofen 800 mg 07/12/24 12:29 07/12/24 14:01 Ibuprofen 800 Mg Tablet PO 07/12/24 12:30 800 mg ONCE ONE Administration Ondansetron HCl 4 mg 07/12/24 09:13 07/12/24 09:15 Ondansetron Odt 4 Mg Tab.Rapdis TRANSLINGU 07/12/24 09:14 4 mg ONCE ONE Administration Oseltamivir Phosphate 75 mg 07/12/24 15:21 07/12/24 16:07 Oseltamivir Phosphate 75 Mg Capsule PO 07/12/24 15:22 75 mg ONCE ONE Administration Medical Decision Making Medical Decision Making [facility] Narrative: [age] female with viral syndrome positive for influenza. Patient's urine shows ketones of 40. Pills she will be given IV fluids and EMC. Patient is eating [employer] not any distress. Fever resolved with Tylenol. 5:27PM; patient received 2 bags of lactated Ringer's. Patient is eating [employer]. Blood pressure improved. Patient given Tamiflu. Patient explained worrisome signs and informed to return to the ED immediately. Not suspecting hypoxia, PE, MS, pericarditis, CHF, respiratory failure,myocarditits or pneumonia. Differential Diagnosis Differential Diagnoses: The differential diagnosis associated with the presentation includes (SARS, COVID, influenza) Admission/Observation Consideration of admission/observation: Escalation of care including admission/observation considered Lab Data [facility] Lab Attestation statement: I reviewed the patient's lab results. 07/12/24 09:47 07/12/24 09:47 Labs: Lab Results 07/12/24 07/12/24 Range/Units 09:47 12:27 WBC 5.9 (4.8-10.8) X10*3/uL RBC 4.16 L (4.20-5.50) X10*6/uL Hgb 9.0 L (12.0-16.0) g/dl Hct 29.4 L (37.0-47.0) % MCV 70.7 L (80.0-98.0) fL MCH 21.6 L (27.0-33.0) pg MCHC 30.6 L (31.0-35.0) g/dl RDW 16.9 H (11.0-16.0) % Plt Count 318 (160-400) X10*3/uL MPV 9.0 L (9.4-12.3) fL Immature Gran % (Auto) 0.3 (0.0-0.4) % Neut % (Auto) 84.9 H (45-73) % Lymph % (Auto) 2.6 L (20-40) % [place] % (Auto) 11.3 H (2-11) % Eos % (Auto) 0.7 (0-4) % Baso % (Auto) 0.2 (0-2) % Lymph # (Auto) 0.2 L (1.2-4.9) X10*3/uL [place] # (Auto) 0.7 (0.1-1.2) X10*3/uL Eos # (Auto) 0.0 (0.0-0.4) X10*3/uL Baso # (Auto) 0.0 (0.0-0.2) X10*3/uL Abs Immat Gran (auto) 0.02 (0.00-0.03) X10*3/uL Absolute Neuts (auto) 5.0 (2.0-8.3) x10*3/uL Absolute Nucleated RBC 0.000 (0.0-0.012) X10*3/uL Nucleated RBC % (auto) 0.0 (0.0-0.2) /100WBC Sodium 137 (135-145) mmol/L Potassium 3.4 (3.3-5.1) mmol/L Chloride 107 (96-108) mmol/L Carbon Dioxide 24 (22-29) mmol/L Anion Gap 9 L (12-20) BUN 8 L (9-16) mg/dL Creatinine 0.62 (0.5-1.4) mg/dL Estim Creat Clear Calc 89.7 Estimated GFR > 60 Random Glucose 97 (60-115) mg/dL Calcium 8.6 D (8.4-10.2) mg/dL Total Bilirubin 0.3 (0.0-1.0) mg/dL AST 22 (5-31) U/L ALT 8 (0-31) U/L Alkaline Phosphatase 67 (39-117) U/L Total Protein 7.6 (6.5-8.0) g/dL Albumin 4.1 (3.5-5.0) g/dL Lipase 22 (8-78) U/L Beta HCG, Quant < 2 mIU/mL Urine Color Yellow Urine Appearance Clear Urine pH 5.5 (5.0-9.0) Ur Specific Victor 1.020 (1.005-1.025) Urine Protein 30 (1+) H (Neg-Trace) mg/dL Urine Glucose (UA) Negative (Negative) mg/dL Urine Ketones 40 (Negative) mg/dL Urine Blood Negative (Negative) Urine Nitrite Negative (Negative) Ur Leukocyte Esterase Negative (Negative) Urine RBC 0-2 (0-2) /HPF Urine WBC 0-5 (0-5) /HPF Ur Squamous Epith Cells 3-5 (0-2) /HPF Urine Bacteria None Seen (None Seen) Hyaline Casts 0-2 (0-2) /LPF Influenza Type A (PCR) POSITIVE A (Negative) Influenza Type B (PCR) NEGATIVE (Negative) RSV RNA Qual (PCR) NEGATIVE (Negative) SARS-CoV-2 RNA (RT-PCR) NEGATIVE (Negative) Independent Historian Clinical information obtained from an independent historian. History obtained from or confirmed by: Other (Patient) External Record Review External record reviewed: Other (prior visits) Discharge Plan Discharge Clinical Impression: Influenza Patient Disposition: Home, Self-Care Instructions: Influenza (ED) Additional Instructions: Recommend follow-up with your primary care provider. Return to the ED for any chest pain, shortness of breath, weakness, dizziness, or any other concerning symptoms. Prescriptions: New oseltamivir [Tamiflu] 75 mg capsule 75 mg PO BID 5 Days Qty: 9 0RF Rx Instructions: Patient received 1st dose in the ED No Action gikhhztgos-tzmeulirtiwxo-kycz [Fioricet] 50-300-40 mg capsule 1 cap PO Q8H PRN (Reason: pain) Qty: 14 0RF prenat.vits,peter,znn-riym-chrty Tablet 1 tab PO DAILY Stand Alone Forms: Work/School Release Print Language: Danish
[2024-07-12 12:39] LABS: Appearance Urine Clear; Color Urine Yellow; Glucose Urine UA Negative (Negative); Leukocyte Esterase Urine Negative (Negative); Nitrite Urine Negative (Negative); PH 5.5 (5.0-9.0); UMIC TRIGGER UACC YES; Urine Blood Negative (Negative); Urine Ketones 40 mg/dL (Negative); Urine Protein 30 (1+) mg/dL (Neg-Trace)
[2024-07-12 12:47] LABS: Bacteria Urine None Seen (None Seen); Hyaline Casts Urine 0-2 /LPF (0-2); RBC Urine 0-2 /HPF (0-2); WBC Urine 0-5 /HPF (0-5)
[2024-07-12] MEDS: Ibuprofen 800 MG TABLET PO (14:01)
[2024-07-12] MEDS: Lactated Ringers 1,000 ML 999 ML IV ×2 (14:11→14:12)
[2024-07-12 14:55] VITALS: BP 94/48; PULSE 98; RESP 14; TEMP 37.3; O2SAT 99
[2024-07-12] MEDS: Oseltamivir Phosphate 75 MG CAPSULE PO (16:07)
[2024-07-12 16:35] VITALS: BP 108/63; PULSE 105; RESP 16; O2SAT 98
[2024-07-12 17:42] VITALS: BP 92/56; PULSE 97; RESP 16; TEMP 36.1; O2SAT 100
[2024-07-12 18:06] VITALS: BP 92/56; PULSE 97; RESP 16; TEMP 36.1; O2SAT 100
== END 2024-07-12 18:07 | disposition home or self-care (01) ==
PROVIDERS: Physician Assistant; Emergency Provider Emergency Medicine
DX: J10.1 Influenza due to other identified influenza virus with other respiratory manifestations (principal); R50.9 Fever, unspecified; Z03.818 Encounter for observation for suspected exposure to other biological agents ruled out
CPT/HCPCS: 0241U; 80053; 81001; 83690; 84702; 85025; 93005; 96360; 96361; 99284; J7120

== ENCOUNTER → 2024-07-12 09:41 | Outpatient (BNV) | payer SELFPAY | PROVIDERS: Emergency Provider Emergency Medicine; Visit Provider Internal Medicine Cardiovascular Disease | DX: R00.0 Tachycardia, unspecified (principal) | CPT/HCPCS: 93010 ==

== ENCOUNTER 2024-11-22 03:36 | Emergency (ER) | payer SELFPAY ==
--- NOTE | ~2024-11-22 | CT_ITS ---
CLINICAL HISTORY: Fall CT cervical spine without contrast Comparison: None Findings: Normal vertebral body alignment. No significant degenerative change. No acute fractures or dislocations. No acute findings on limited view of the intracranial contents. No cervical fluid collections or masses. Lung apices are clear. IMPRESSION: No acute findings. This document has been electronically signed by: Amanuel Messer MD on 11/22/2024 05:58:41
--- NOTE | ~2024-11-22 | CT_ITS ---
CLINICAL HISTORY: Fall CT head without contrast Comparison: 06/12/2022 Findings: No new intra-axial mass, midline shift, hydrocephalus, or acute hemorrhage. No significant atrophy-like change or white matter disease. The visualized paranasal sinuses and mastoid air cells are normal. The orbits are unremarkable. No skull fracture. IMPRESSION: 1. No acute intracranial findings. This document has been electronically signed by: Amanuel Messer MD on 11/22/2024 06:01:40
[2024-11-22 03:41] VITALS: BP 98/59; PULSE 89; RESP 16; O2SAT 100; BMI 23.1
--- NOTE | 2024-11-22 04:20 | PC.NURSE ---
24 F presents to walk in triage s/p +mechanical fall, patient states she tripped while walking down the stairs, +HS, no obvious signs of injury/trauma, A&Ox4, neuro intact, PERRL, VSS, c/o mild pain to head and neck, no pertinent medical hx reported, plan for imaging, WTBS
[2024-11-22 04:31] VITALS: BP 102/55
[2024-11-22 04:53] VITALS: BP 92/57; PULSE 85; RESP 16; O2SAT 100
--- NOTE | 2024-11-22 05:15 | ED_ITS ---
HPI - Fall General Chief Complaint: Fall Stated Complaint: Fall Time Seen by Provider: 11/22/24 05:13 Source: patient Mode of arrival: ambulatory Limitations: no limitations History of Present Illness ED Provider: HPI Narrative: Patient apparently was coming down wooden steps tripped and fell about 6 steps hitting the buttocks 1st and then the head complaining of pain in the lower part of the back of the head was dazed for few sec no nausea no vomiting no loss of consciousness Related Data Home Medications ?Medication ?Instructions ?Recorded ?Confirmed prenat.vits,peter,mek-srkk-cjbry 1 tab PO DAILY 08/11/22 Previous Rx's ?Medication ?Instructions ?Recorded sddibtsnxz-coxenolojzkvl-ilafewel 1 cap PO Q8H PRN pain #14 caps 08/31/23 50 mg-300 mg-40 mg capsule (Fioricet) oseltamivir 75 mg capsule (Tamiflu) 75 mg PO BID 5 days #9 caps 07/12/24 Allergies Allergy/AdvReac Type Severity Reaction Status Date / Time No Known Allergies Allergy Verified 11/22/24 03:44 Review of Systems Review of Systems: Yes all other systems are reviewed and are negative [facility] Past Medical History Medical History Go syndrome Surgical History Hx of external ear surgery Hx of adenoidectomy Social History Social History Alcohol intake: never Patient Tobacco Use Status: Never used Tobacco Smoked in Last 30 Days: No Use of substances other than those prescribed or required for medical reasons: No Advance Directives: No Advance Directives Information Provided: Yes Do you have a plan to hurt others: No Plan Patient : No Physical Exam Vital Signs: Vital Signs: Last Vital Signs Pulse 85 11/22/24 04:53 Resp 16 11/22/24 04:53 BP 90/64 11/22/24 05:45 Pulse Ox 100 11/22/24 04:53 O2 Del Method Room Air 11/22/24 04:53 BMI result Body Mass Index 23.1 Appearance: Alert. Oriented X3. No acute distress. Eyes: PERRLA, No Nystagmus HEENT: Pharynx normal. Oral Mucosa moist atraumatic normocephalic Neck: Normal inspection. Neck supple. No midline tenderness CVS: Normal heart rate and rhythm. Pulses normal. Respiratory: No respiratory distress. Equal air entry bilateral, no wheezing/rales/rhonchi Abdomen: Soft and nontender. Bowel sounds are present, no mass palpable, no CVA tenderness Skin: Skin warm and dry. Normal skin color. Normal skin turgor. Extremities: No lower extremity edema. No calf tenderness no spinal tenderness pelvis stable Neuro: Oriented X 3. No motor deficit. No sensory deficit.No cerebellar signs , cranial nerves II-XII intact Medications Administered Discontinued Medications Generic Name Dose Route Start Last Admin Trade Name Freq PRN Reason Stop Dose Admin Acetaminophen 650 mg 11/22/24 05:28 11/22/24 05:45 Acetaminophen 325 Mg Tablet PO 11/22/24 05:29 650 mg ONCE ONE Administration Medical Decision Making Medical Decision Making [facility] Narrative: Patient after minor fall CT scan of the cervical spine and head negative advised supportive treatment Independent Interpretation I performed an independent interpretation of an: CT Scan Radiology Impression Discussion of test interpretation with radiology: I have reviewed the radiologist's reading. Radiologist Impression: No acute Discharge Plan Discharge Clinical Impression: Minor closed head injury Patient Disposition: Home, Self-Care Instructions: Head Injury (ED) Additional Instructions: No significant head injury or neck injury noticed your CT scan of the cervical spine and head is negative Take Tylenol for pain as needed Report to the ED if altered mental status/seizure/worsening of the headache Prescriptions: No Action oseltamivir [Tamiflu] 75 mg capsule 75 mg PO BID 5 Days Qty: 9 0RF Rx Instructions: Patient received 1st dose in the ED yicpxogpce-vjmtgizpfgtbd-lenb [Fioricet] 50-300-40 mg capsule 1 cap PO Q8H PRN (Reason: pain) Qty: 14 0RF prenat.vits,peter,uzl-ttro-furoe Tablet 1 tab PO DAILY Print Language: Uruguayan
[2024-11-22 05:45] VITALS: BP 90/64
[2024-11-22] MEDS: Acetaminophen 325 MG TABLET 650 MG PO (05:45)
[2024-11-22 06:22] VITALS: BP 100/64; BP 106/64; PULSE 80; PULSE 81; RESP 16; RESP 18; TEMP 36.7; TEMP 36.8; O2SAT 100; O2SAT 99
[2024-11-22 06:26] VITALS: BP 106/64; PULSE 80; RESP 16; TEMP 36.8; O2SAT 99
== END 2024-11-22 06:26 | disposition home or self-care (01) ==
PROVIDERS: Emergency Provider Internal Medicine
DX: S09.90XA Unspecified injury of head, initial encounter (principal); M54.2 Cervicalgia; R51.9 Headache, unspecified; W10.9XXA Fall (on) (from) unspecified stairs and steps, initial encounter; Y93.9 Activity, unspecified; Y92.9 Unspecified place or not applicable; Y99.8 Other external cause status
CPT/HCPCS: 70450; 72125; 99284; 99285

== ENCOUNTER → 2024-11-22 04:41 | Outpatient (BNV) | payer SELFPAY | PROVIDERS: Emergency Provider Internal Medicine; Visit Provider Specialist | DX: M54.2 Cervicalgia (principal); R51.9 Headache, unspecified; W19.XXXA Unspecified fall, initial encounter | CPT/HCPCS: 70450; 72125 ==